=== PATIENT | female | born 1940 | race Caucasian/White ===

== ENCOUNTER 2022-12-22 10:07 | Inpatient (IN) | payer MEDICARE, OTHER ==
[~2022-12-22] VITALS: Ht 152.4 cm; Wt 82.6 kg
[~2022-12-22 10:07] MED LIST: ALBU18HF2 INH; APIX5TAB PO; ASPI-1169 PO; ATOR40TA PO; CARV3.122 PO; CHOL100043 PO; DILT300C52 PO; FERR325T24 PO; FLUO15OI TP; FURO40TA5 PO; GABA-532 PO; MECL-159 PO; OLME1TAB92 PO; OMEP1CAP25 PO; TRAM50TA2 PO
--- NOTE | 2022-12-22 10:54 | NUR ---
AAOx4, came to ER c/o shortness of breath. Afebrile. No s/s or c/o distress. Will continuously monitor the patient. Awaiting md for eval.
[2022-12-22] MEDS ORDERED: FUROSEMIDE 40 MG/4 ML VIAL IV ONE (11:00)
[2022-12-22 11:02] LABS: CALCIUM, SERUM 9.8 mg/dL (8.5-10.1); CARBON DIOXIDE 36 mmol/L (21-32); CHLORIDE 103 mmol/L (98-107); CREATININE 2.9 mg/dL (0.6-1.3); GLUCOSE 110 mg/dL (74-106); POTASSIUM 4.1 mmol/L (3.5-5.1); SODIUM SERUM 146 mmol/L (136-145); UREA NITROGEN, BLOOD 64 mg/dL (7-18)
[2022-12-22] MEDS ORDERED: MELO-107 PO (11:05)
[2022-12-22 11:10] LABS: BASOPHILS % (AUTO) 0.3 % (0.0-2.0); EOSINOPHILS % (AUTO) 7.1 % (0.0-6.0); HEMATOCRIT 23 % (33-45); HEMOGLOBIN 7.4 g/dL (11.5-14.8); LYMPHOCYTES # (AUTO) 1.2 K/uL (0.8-4.8); LYMPHOCYTES % (AUTO) 16.6 % (20.0-44.0); MEAN CORPUSCULAR HGB CONC 33 g/dl (31.0-36.0); MEAN CORPUSCULAR VOLUME 93 fL (82-100); MONOCYTES % (AUTO) 13.3 % (2.0-12.0); NEUTROPHILS # (AUTO) 4.6 K/uL (1.8-8.9); NEUTROPHILS % (AUTO) 62.7 % (43.0-81.0); PLATELET COUNT (AUTO) 197 K/uL (150-450); RED BLOOD CELL COUNT(AUTO) 2.44 MIL/uL (4.0-5.2); WHITE BLOOD COUNT (AUTO) 7.4 K/uL (4.3-11.0)
--- NOTE | 2022-12-22 11:12 | NUR ---
MOVE SHEET SUBMITTED.
[2022-12-22] MEDS ORDERED: FUROSEMIDE 40 MG/4 ML VIAL ONE (11:16)
[2022-12-22] MEDS ORDERED: ACETAMINOPHEN 325 MG TABLET PO PRN (12:30)
[2022-12-22] MEDS ORDERED: ONDANSETRON HCL/PF 4 MG/2 ML VIAL IVP PRN (12:30)
[2022-12-22] MEDS ORDERED: MECLIZINE HCL 25 MG TABLET PO PRN (12:30)
--- NOTE | 2022-12-22 13:27 | NUR ---
BED 322-2. CALL NURSE KAUSHIK FOR REPORT.
[2022-12-22] MEDS ORDERED: ONDANSETRON HCL/PF 4 MG/2 ML VIAL IV STA (13:46)
--- NOTE | 2022-12-22 15:08 | NUR ---
pt left to room 322-1. left er in stable condition.
[2022-12-22 15:30] VITALS: BP 120/70; TEMP 98.2; O2SAT 97
--- NOTE | 2022-12-22 15:30 | NUR ---
ADMISSION NOTES RECEIVED PATIENT VIA GURNEY FROM THE EMERGENCY ROOM. PATIENT IS AWAKE IN BED, A/O X4. NO S/S OF PAIN NOTED AT THIS TIME. ON O2 AT 2LPM VIA NASAL CANNULA, BREATHING EVEN AND UNLABORED, NO DISTRESS OR SOB NOTED. IV ACCESS RAC ML #20G SL, INTACT, PATENT AND FLUSHING WELL. PATIENT ATTACHED TO EXTERNAL OFFICIAL GREETER WITH READING OF SINUS RHYTHM WITH HR OF 66. NO CARDIAC DISTRESS NOTED. VITAL SIGNS TAKEN AND RECORDED. SKIN ASSESSMENT DONE. PHOTOS TAKEN AND ATTACHED TO PATIENT'S CHART. FALL AND SAFETY MEASURES IN PLACE AND MAINTAINED AT ALL TIMES, BED ALARM ON, BED IN LOW AND LOCK POSITION, CALL LIGHT AND TABLE WITHIN EASY REACH, SIDE RAILS UP X2. WILL CONTINUE TO MONITOR THE PATIENT.
[2022-12-22] MEDS ORDERED: FUROSEMIDE 40 MG TABLET PO SCH (17:00)
[2022-12-22] MEDS: TRAMADOL HCL 50 MG TABLET PO SCH ×2 (17:00→17:22)
--- NOTE | 2022-12-22 17:00 | NUR ---
RN NOTE INFORMED DR. IGLESIAS OF PATIENT'S H&H AND WAS ORDERED TO CONTINUE GIVING ELIQUIS. NO SISGNS OF BLEEDING NOTED. CHARGE NURSE MADE AWARE. WILL CONTINUE TO MONITOR THE PATIENT
[2022-12-22] MEDS: CHOLECALCIFEROL (VITAMIN D 3) 400 UNIT TABLET PO SCH (17:21)
[2022-12-22] MEDS: FERROUS SULFATE (325 MG) 325 MG/TAB TABLET PO SCH (17:22)
[2022-12-22] MEDS: GABAPENTIN 100 MG CAPSULE PO SCH (17:22)
--- NOTE | 2022-12-22 17:22 | NUR ---
RN NOTE PATIENT VERBALIZED PAIN IN THE RIGHT THIGH DURING TURNING AND DOING DRESSING. PRN PAIN MEDICATION ADMINISTERED. WILL CONTINUE TO MONITOR THE PATIENT
[2022-12-22] MEDS: DILTIAZEM HCL CD 240 MG PO SCH (17:23)
[2022-12-22] MEDS: APIXABAN 2.5 MG TABLET PO SCH (17:24)
--- NOTE | 2022-12-22 18:39 | NUR ---
CLOSING NOTES PATIENT AWAKE IN BED RESTING. NO S/S OF PAIN NOTED AT THIS TIME. ON O2 AT 2 LPM VIA NASAL CANNULA, BREATHING EVEN AND UNLABORED, NO DISTRESS OR SOB NOTED. IV ACCESS RAC #20G, INTACT, PATENT AND FLUSHING WELL. 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 SKIN CARE IMPLEMENTED. FALL AND SAFETY MEASURES IN PLACE AND MAINTAINED AT ALL TIMES, BED ALARM ON, BED IN LOW AND LOCK POSITION, CALL LIGHT AND TABLE WITHIN EASY REACH, SIDE RAILS UP X2. WILL ENDORSE TO MACHINE STONE POLISHER APPRENTICE NURSE
--- NOTE | 2022-12-22 19:00 | NUR ---
MORTUARY TECHNICIAN OPENING NOTE PT IS SITTING IN HER BED WITH HOB ELEVATED AT 45 DEGREE. SHE IS ON 2LPM OF OXYGEN VIA NC, TOLERATED WELL. NO S/S OF DISTRESS OR SOB. PT IS CZECH SPEAKING, UNDERSTAND SIMPLE JAPANESE. PT IS ALERT AND ORIENTED, AO X 4. PT HAS IV ACCESS AT HER R AC, SL. FLUSHED WELL WITH NS. IV SITE IS PATENT AND INTACT. 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 SAFETY MEASURES ARE IN PLACED: BED IN LOWEST AND LOCKED POSITION; SIDE RAILS UP X 2; BED ALARM IS SET; CALL LIGHT AND TABLE ARE WITHIN REACH. WILL CONTINUE MONITORING THE PT AND PROVIDE THE CARE PT NEEDS.
[2022-12-22 20:00] VITALS: BP_SYST 120; BP_SYST 125; BP_DIAS 54; BP_DIAS 79; TEMP 97.8; O2SAT 100; O2SAT 95
--- NOTE | 2022-12-22 23:29 | NUR ---
RT NOTE PATIENT IS AWAKE ON 3LPM. SPOKE WITH PATIENTS DAUGHTER AND EXPLAINED TO HER BENEFITS OF BIPAP AND HOW HER MOTHER WOULD BENEFIT FROM USING IT. DAUGHTER EXPLAINED THAT THE PATIENT IS OK WITH TRYING TO USE IT BUT WILL NOT WEAR IT IF SHE DOES NOT LIKE IT. ATTEMPTED TO PLACE PATIENT ON BIPAP WITH DIFFERENT SIZE MASKS AND ADJUSTED SETTINGS IN ATTEMPT TO MAKE PATIENT COMFORTABLE. PATIENT DID NOT TOLERATE WEARING BIPAP AND WANTED IT REMOVED. PLACED PATIENT BACK ON 3LPM. SPO2 ON 3L N/C IS 97%. NO SIGNS OF SHORTNESS OF BREATH NOTED. NOTIFIED PRIMARY NURSE ABOUT SITUATION. WILL CONTINUE TO MONITOR PATIENT ON NASAL CANNULA.
[2022-12-23] VITALS (7 sets, daily range): BP systolic 105–134; BP diastolic 43–60; TEMP 97.4–98.5; O2SAT 97–100
[2022-12-23 05:49] LABS: BASOPHILS % (AUTO) 0.5 % (0.0-2.0); EOSINOPHILS % (AUTO) 8.2 % (0.0-6.0); HEMATOCRIT 22 % (33-45); HEMOGLOBIN 7.2 g/dL (11.5-14.8); LYMPHOCYTES # (AUTO) 1.5 K/uL (0.8-4.8); LYMPHOCYTES % (AUTO) 23.8 % (20.0-44.0); MEAN CORPUSCULAR HGB CONC 32 g/dl (31.0-36.0); MEAN CORPUSCULAR VOLUME 94 fL (82-100); MONOCYTES # (AUTO) 0.8 K/uL (0.1-1.30); MONOCYTES % (AUTO) 12.6 % (2.0-12.0); NEUTROPHILS # (AUTO) 3.5 K/uL (1.8-8.9); NEUTROPHILS % (AUTO) 54.9 % (43.0-81.0); PLATELET COUNT (AUTO) 187 K/uL (150-450); RED BLOOD CELL COUNT(AUTO) 2.36 MIL/uL (4.0-5.2); WHITE BLOOD COUNT (AUTO) 6.4 K/uL (4.3-11.0)
[2022-12-23 05:58] LABS: CARBON DIOXIDE 33 mmol/L (21-32); CHLORIDE 102 mmol/L (98-107); GLUCOSE 102 mg/dL (74-106); MAGNESIUM 2.4 mg/dL (1.8-2.4); PHOSPHORUS 4.8 mg/dL (2.5-4.9); POTASSIUM 3.9 mmol/L (3.5-5.1); SODIUM SERUM 144 mmol/L (136-145); UREA NITROGEN, BLOOD 68 mg/dL (7-18)
--- NOTE | 2022-12-23 07:15 | NUR ---
DISHROOM ATTENDANT CLOSING NOTE PT IS SLEEPING IN BED, EASILY BEING AROUSED. SHE IS ON 2LPM OF OXYGEN VIA NC, TOLERATED WELL. NO S/S OF DISTRESS OR SOB. PT IS STATELESS SPEAKING, UNDERSTAND SIMPLE ROMANIAN. PT IS ALERT AND ORIENTED, AO X 4. PT HAS IV ACCESS AT HER R AC, SL. FLUSHED WELL WITH NS. IV SITE IS PATENT AND INTACT. 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 PT REFUSED BIPAP LAST NIGHT. RT CALLED HER FAMILY MEMBER TO EXPLAIN THE SITUATION WITH PT, PT STILL REFUSED. SAFETY MEASURES ARE IN PLACED: BED IN LOWEST AND LOCKED POSITION; SIDE RAILS UP X 2; BED ALARM IS SET; CALL LIGHT AND TABLE ARE WITHIN REACH. WILL ENDORSE NEXT SHIFT NURSE FOR CONTINUING PT CARE.
--- NOTE | 2022-12-23 07:30 | NUR ---
CONTRACT LOADER NOTES PT IN BED, AWAKE, ALERT AND ORIENTED, NO COMPLAINT OF PAIN OR SOB, ON O2 AT 2LPM VIA N/C, WITH O2 SAT OF 97%, SON AT BEDSIDE, PLAN OF CARE DISCUSSED WITH SON, VERBALIZED UNDERSTANDING, KEPT COMFORTABLE IN BED.
[2022-12-23] MEDS: FERROUS SULFATE (325 MG) 325 MG/TAB TABLET PO SCH ×2 (08:48→17:25)
[2022-12-23] MEDS: CHOLECALCIFEROL (VITAMIN D 3) 400 UNIT TABLET PO SCH (08:48)
[2022-12-23] MEDS: GABAPENTIN 100 MG CAPSULE PO SCH (08:49)
[2022-12-23] MEDS: ATORVASTATIN 40 MG TABLET PO SCH (08:49)
[2022-12-23] MEDS: TRAMADOL HCL 50 MG TABLET PO SCH ×3 (08:49→17:25)
[2022-12-23] MEDS: PANTOPRAZOLE 40 MG TABLET.DR PO SCH (08:49)
[2022-12-23] MEDS: DILTIAZEM HCL CD 240 MG PO SCH (08:53)
[2022-12-23] MEDS: APIXABAN 2.5 MG TABLET PO SCH ×2 (09:00→17:00)
[2022-12-23] MEDS ORDERED: LOSARTAN/HCTZ 50-12.5MG/ 1 EA TABLET PO SCH (09:00)
--- NOTE | 2022-12-23 09:00 | NUR ---
FLATBED COMPANY DRIVER NOTES ELIQUIS NOT GIVEN, LOW H/H.
[2022-12-23 09:14] LABS: ABG BASE EXCESS 6.8 mmol/L; ABG OXYGEN SATURATION 97.5 % (92.0-98.5); ABG PCO2 49.2 mmHg (35.0-45.0); ABG PH 7.429 (7.350-7.450); ABG PO2 119.7 mmHg (75.0-100.0); AaDO2 21.9 mmHg; COHb 0.3 % (0.5-1.5); MetHb 0.5 % (0.0-1.5); O2Hb 96.7 % (94.0-97.0); SITE, ABG Left Radial; VENT MODE, BG 2 L O2
--- NOTE | 2022-12-23 11:34 | NUR ---
PATIENT INTIALLY FOUND ON 2 L O2 AWAKE, NON PAKISTANI SPEAKING WITH 100% SAT. DR. ALTAMIRANO SAID TO PLACE PATIENT R/A PER ABG RESULT AND KEEP ABOVE 90% ON R/A.. PATIENT REMAIN STABLE. Addendum: 12/23/22 at 1136 by MARIA ELENA MONK RT Amended: Links added.
--- NOTE | 2022-12-23 18:44 | NUR ---
TYPISTS SUPERVISOR NOTES PT IN BED, AWAKE, ALERT AND ORIENTED, NO SHORTNESS OF BREATH, NO COMPLAINT OF PAIN, BACK ON O2 AT 2LPM VIA N/C, O2 SAT OF 97%, KEPT HOB ELEVATED, WITH GOOD APPETITE, PM CARE PROVIDED, PLAN OF CARE DISCUSSED WITH SON, VERBALIZED UNDERSTANDING, SEEN BY DR. IGLESIAS TODAY, ALL NEEDS ATTENDED.
--- NOTE | 2022-12-23 19:30 | NUR ---
FINE PATCHER OPENING NOTES: PATIENT AWAKE ON BED, A/O X4. NO COMPLAINTS OF PAIN OR DISCOMFORT NOTED AT THIS TIME. ON 02 AT 2LPM VIA NC, BREATHING EVEN AND UNLABORED, NO OR SOB NOTED. WITH IV ACCESS AT RAC #20G-SL, INTACT AND PATENT. FALL AND SAFETY PRECAUTIONS IN PLACE. BED IN LOW AND LOCKED POSITION, SIDE RAILS UP X2. CALL LIGHT AND TABLE WITHIN EASY REACH.
--- NOTE | 2022-12-23 19:57 | NUR ---
RCVD PT AT 2L NC AND ATTEMPTED TO PLACE NOC BIPAP, PT REFUSED. SPO2 98% , TITRATE O2 TO 1L. NO RESPIRATORY DISTRESS OR SOB AT THIS TIME. WILL CONTINUE TO MONITOR T/O SHIFT.
--- NOTE | 2022-12-23 19:58 | NUR ---
TRIP FOLLOWER NOTES: SPOKE WITH THE PATIENT TOGETHER WITH RT ON DUTY NORMA, TO CONVINCE BIPAP PLACEMENT. PATIENT STILL REFUSED BIPAP DESPITE EXPLAINING RISKS AND CONSEQUENCES. PATIENT INITIALLY WAS ON 2LPM AND WAS TAPERED DOWN TO 1LPM, SATURATING AT 98%, TOLERATING WELL, NOT IN ANY RESPIRATORY DISTRESS.
[2022-12-24] VITALS (8 sets, daily range): BP systolic 108–129; BP diastolic 43–54; TEMP 97.4–98.4; O2SAT 96–100
[2022-12-24 05:57] LABS: BASOPHILS % (AUTO) 0.3 % (0.0-2.0); EOSINOPHILS % (AUTO) 7.5 % (0.0-6.0); HEMATOCRIT 22 % (33-45); LYMPHOCYTES # (AUTO) 1.8 K/uL (0.8-4.8); LYMPHOCYTES % (AUTO) 21.9 % (20.0-44.0); MEAN CORPUSCULAR HGB CONC 32 g/dl (31.0-36.0); MEAN CORPUSCULAR VOLUME 94 fL (82-100); MONOCYTES # (AUTO) 1.1 K/uL (0.1-1.30); NEUTROPHILS # (AUTO) 4.6 K/uL (1.8-8.9); NEUTROPHILS % (AUTO) 56.3 % (43.0-81.0); PLATELET COUNT (AUTO) 182 K/uL (150-450); RED BLOOD CELL COUNT(AUTO) 2.28 MIL/uL (4.0-5.2); WHITE BLOOD COUNT (AUTO) 8.1 K/uL (4.3-11.0)
--- NOTE | 2022-12-24 06:12 | NUR ---
REAL ESTATE APPRAISER SUPERVISOR NOTE RECEIVED A CALL FROM LAB ABOUT LATEST CBC RESULT OF PATIENT. RBC WENT DOWN TO 2.28, HGB-7, HCT-22. NOTIFIED HOSPITALIST CLINICAL BUSINESS MANAGER DR. SCHULER AND AWAITING FOR ADVISE. NO S/SX. OF BLEEDING OF THIS TIME.
[2022-12-24 06:16] LABS: CALCIUM, SERUM 9.1 mg/dL (8.5-10.1); CARBON DIOXIDE 32 mmol/L (21-32); CHLORIDE 104 mmol/L (98-107); GLUCOSE 92 mg/dL (74-106); MAGNESIUM 2.5 mg/dL (1.8-2.4); PHOSPHORUS 4.6 mg/dL (2.5-4.9); POTASSIUM 4.3 mmol/L (3.5-5.1); SODIUM SERUM 142 mmol/L (136-145); UREA NITROGEN, BLOOD 68 mg/dL (7-18)
[2022-12-24 06:27] LABS: CREATININE, URINE 114.9 MG/DL (30.0-125.0)
--- NOTE | 2022-12-24 06:30 | NUR ---
FRONT DESK LEAD CLOSING NOTES: PATIENT AWAKE ON BED, A/O X4. NO COMPLAINTS OF PAIN OR DISCOMFORT NOTED AT THIS TIME. ON 02 AT 1LPM VIA NC, BREATHING EVEN AND UNLABORED. PATIENT STILL REFUSED BIPAP DESPITE EXPLAINING RISKS AND CONSEQUENCES. SATURATING AT 96%, TOLERATING WELL, NOT IN ANY RESPIRATORY DISTRESS. WITH IV ACCESS AT RAC #20G-SL, INTACT AND PATENT. ON TELE MONITORING WITH CURRENT READING OF SR 80. FALL AND SAFETY PRECAUTIONS IN PLACE. BED IN LOW AND LOCKED POSITION, SIDE RAILS UP X2. CALL LIGHT AND TABLE WITHIN EASY REACH. ALL NEEDS ATTENDED. ENDORSED TO AM NURSE FOR JON.
[2022-12-24 06:40] LABS: BILIRUBIN,URINE NEGATIVE (NEGATIVE); COLOR,URINE YELLOW (YELLOW); LEUKOCYTE ESTERASE ,URINE 2+ (NEGATIVE); NITRITE, URINE NEGATIVE (NEGATIVE); PROTEIN,URINE NEGATIVE (NEGATIVE); UGLUCOSE NEGATIVE (NEGATIVE); UROBILINOGEN,URINE 0.2 EU/dL (0.2)
[2022-12-24 06:57] LABS: BACTERIA,URINE Few /HPF (None Seen); EOSINOPHIL,URINE None Seen; RBC,URINE 0-2 /HPF (0-2); SQUAMOUS EPITHELIAL CELL,UR Rare /HPF (None Seen)
--- NOTE | 2022-12-24 06:59 | NUR ---
FACILITIES DIRECTOR NOTE RELAYED LATEST LAB RESULT WITH NO NEW ORDER MADE.
--- NOTE | 2022-12-24 08:06 | NUR ---
QA AUTOMATION ENGINEER OPENING NOTE RECEIVED PT RESTFUL IN BED,A&O x2,SATURATING WELL ON 02 1L/M VIA NC ,BREATHING IS EVEN AND UNLABORED,APPEARS TO BE COMFORTABLE,NO S/S OF DISCOMFORT NOTED.HAS A TELE WITH A READING OF SR 80.HAS A PUREWICK INTACT AND DRAINING WELL.HAS AN IV ACCESS RAC #20G .ON SKIN ASSESSMENT ,HAS A SKIN TEAR R GROIN,REDNESS AND SCAR AT BUTTOCKS SAFETY MEASURES IN PLACE ,BED IN A LOW POSITION &LOCKED,BED RAILS UP x3.CALL PLATT AND TABLE WITHIN REACH CONTINUES WITH THE CURRENT PLAN OF CARE,HOURLY ROUNDING/PRN
[2022-12-24 08:24] LABS: IRON, SERUM 51 ug/dl (50-175); TOTAL IRON BINDING CAPACITY 280 ug/dl (250-450)
[2022-12-24 08:35] LABS: FERRITIN 451 ng/mL (8-388)
[2022-12-24] MEDS: PANTOPRAZOLE 40 MG TABLET.DR PO SCH (08:38)
[2022-12-24] MEDS: ATORVASTATIN 40 MG TABLET PO SCH (08:38)
[2022-12-24] MEDS: FERROUS SULFATE (325 MG) 325 MG/TAB TABLET PO SCH ×2 (08:38→16:56)
[2022-12-24] MEDS: TRAMADOL HCL 50 MG TABLET PO SCH ×3 (08:40→16:56)
[2022-12-24] MEDS: CHOLECALCIFEROL (VITAMIN D 3) 400 UNIT TABLET PO SCH (08:40)
[2022-12-24] MEDS: GABAPENTIN 100 MG CAPSULE PO SCH (08:41)
[2022-12-24] MEDS: DILTIAZEM HCL CD 240 MG PO SCH ×2 (08:42→08:52)
[2022-12-24] MEDS: APIXABAN 2.5 MG TABLET PO SCH ×2 (08:46→16:56)
[2022-12-24] MEDS ORDERED: LACTULOSE 10 G/15 ML UDC (PYXIS) PO ONE (11:00)
[2022-12-24] MEDS: SORBITOL SOLUTION 70% 30 ML SOLUTION PO SCH (11:51)
--- NOTE | 2022-12-24 19:23 | NUR ---
BONDED STRAND OPERATOR CLOSING NOTE PT RESTFUL IN BED,A&O x2,SATURATING WELL ON 02 1L/M VIA NC ,BREATHING IS EVEN AND UNLABORED,APPEARS TO BE COMFORTABLE,NO S/S OF DISCOMFORT NOTED.HAS A TELE WITH A READING OF SR 80.HAS A PUREWICK INTACT AND DRAINING WELL.TRASH TRUCK DRIVER REPORTED TO ME OF PT'S 1 BM IN THE AFTERNOON.HAS AN IV ACCESS RAC #20G .WOUND CONSULT REVIEWED THE PATIENT ON THE SKIN TEAR R GROIN,REDNESS AND SCAR AT BUTTOCKS AND SAID "ITS NOT BAD,NO CHANGES MADE"!PAIN WELL CONTROLLED THROUGH OUT SHIFT WITH TRAMADOL AROUND THE CLOCK SAFETY MEASURES IN PLACE ,BED IN A LOW POSITION &LOCKED,BED RAILS UP x3.CALL PLATT AND TABLE WITHIN REACH!WILL ENDORSE TO THE CLOTH EXAMINER NURSE
--- NOTE | 2022-12-24 19:30 | NUR ---
PEOPLESOFT PROGRAMMER OPENING NOTE PATIENT IN BED, AWAKE, ALERT AND ORIENTED X4, WITH HOB ELEVATED. AFEBRILE AND NOT IN ANY FORM OF ACUTE DISTRESS. ON O2 INHALATION VIA NASAL CANNULA AT 2LPM. ON TELE MONITORING WITH CURRENT READING SR. WITH IV ACCESS ON RAC 20G-SL. SAFETY MEASURES IN PLACE. KEPT BED IN LOCKED AND IN LOW POSITION. SIDE RAILS UP X2. ADVISED TO USE THE CALL LIGHT WHEN IN NEED OF ASSISTANCE.
--- NOTE | 2022-12-24 20:30 | NUR ---
PT REFUSED NOC BIPAP, SPO2 96% @ 2L NC. NO RESPIRATORY DISTRESS NOTED AT THIS TIME. WILL CONTINUE TO MONITOR T/O SHIFT.
[2022-12-25 04:22] VITALS: BP 142/52; TEMP 98.3; O2SAT 100
[2022-12-25 05:45] LABS: BASOPHILS % (AUTO) 0.4 % (0.0-2.0); EOSINOPHILS % (AUTO) 6.6 % (0.0-6.0); HEMATOCRIT 25 % (33-45); HEMOGLOBIN 7.7 g/dL (11.5-14.8); LYMPHOCYTES # (AUTO) 1.9 K/uL (0.8-4.8); MEAN CORPUSCULAR HGB CONC 32 g/dl (31.0-36.0); MEAN CORPUSCULAR VOLUME 96 fL (82-100); MONOCYTES % (AUTO) 12.5 % (2.0-12.0); NEUTROPHILS # (AUTO) 4.7 K/uL (1.8-8.9); NEUTROPHILS % (AUTO) 57.5 % (43.0-81.0); PLATELET COUNT (AUTO) 195 K/uL (150-450); RED BLOOD CELL COUNT(AUTO) 2.54 MIL/uL (4.0-5.2); WHITE BLOOD COUNT (AUTO) 8.1 K/uL (4.3-11.0)
[2022-12-25 05:59] LABS: CALCIUM, SERUM 9.4 mg/dL (8.5-10.1); CARBON DIOXIDE 31 mmol/L (21-32); CHLORIDE 103 mmol/L (98-107); CREATININE 2.5 mg/dL (0.6-1.3); GLUCOSE 92 mg/dL (74-106); MAGNESIUM 2.6 mg/dL (1.8-2.4); PHOSPHORUS 4.7 mg/dL (2.5-4.9); POTASSIUM 4.3 mmol/L (3.5-5.1); SODIUM SERUM 141 mmol/L (136-145); UREA NITROGEN, BLOOD 59 mg/dL (7-18)
--- NOTE | 2022-12-25 06:30 | NUR ---
HOUSETRAILER SERVICER CLOSING NOTE PATIENT IN BED, WITH HOB ELEVATED, ASLEEP BUT EASY TO AROUSE AND RESPONSIVE. AFEBRILE AND NOT IN ANY FORM OF ACUTE DISTRESS. ON O2 INHALATION VIA NASAL CANNULA AT 2LPM. STILL REFUSING BIPAP AT NIGHT, MD AWARE, NO SOB/WHEEZING NOTED. ON TELE MONITORING WITH CURRENT READING SR 74. WITH IV ACCESS ON RAC 20G-SL. ENCOURAGED TO TURN AND REPOSITION EVERY 2 HOURS AND TOLERATED TO PROMOTE PROPER CIRCULATION AND COMFORT. SAFETY MEASURES IN PLACE. KEPT BED IN LOCKED AND IN LOW POSITION. SIDE RAILS UP X2. ADVISED TO USE THE CALL LIGHT WHEN IN NEED OF ASSISTANCE. ALL NURSING NEEDS ATTENDED. ENDORSED TO INCOMING SHIFT FOR CONTINUITY OF CARE.
[2022-12-25 07:00] VITALS: BP 122/67; TEMP 98.4; O2SAT 99
--- NOTE | 2022-12-25 07:31 | NUR ---
COSMETIC DENTIST OPENING NOTE RECEIVED PATIENT IN BED, AWAKE, A/O X4. ABLE TO MAKE NEEDS KNOWN. ON OXYGEN AT 2LPM VIA NASAL CANNULA, BREATHING EVENLY AND UNLABORED, WITH NO SOB AND S/S OF DISTRESS NOTED. WITH HOB. 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 WITH IV ACCESS ON RIGHT AC #20G SL, INTACT AND PATENT, FLUSHING WELL. NO COMPLAIN OF PAIN OR DISCOMFORT AT THIS TIME. SAFETY MEASURES IN PLACE: BED IN LOWEST LOCKED POSITION, SIDE RAILS UP X2, CALL LIGHT WITHIN REACH. WILL CONTINUE TO MONITOR ACCORDINGLY.
[2022-12-25 08:00] VITALS: O2SAT 100
[2022-12-25] MEDS: GABAPENTIN 100 MG CAPSULE PO SCH (08:19)
[2022-12-25] MEDS: FERROUS SULFATE (325 MG) 325 MG/TAB TABLET PO SCH ×2 (08:19→17:09)
[2022-12-25] MEDS: SORBITOL SOLUTION 70% 30 ML SOLUTION PO SCH (08:19)
[2022-12-25] MEDS: CHOLECALCIFEROL (VITAMIN D 3) 400 UNIT TABLET PO SCH (08:20)
[2022-12-25] MEDS: PANTOPRAZOLE 40 MG TABLET.DR PO SCH (08:20)
[2022-12-25] MEDS: TRAMADOL HCL 50 MG TABLET PO SCH ×3 (08:20→17:10)
[2022-12-25] MEDS: ATORVASTATIN 40 MG TABLET PO SCH (08:20)
[2022-12-25 08:21] VITALS: BP 122/67
[2022-12-25] MEDS: DILTIAZEM HCL CD 240 MG PO SCH (08:21)
[2022-12-25] MEDS: APIXABAN 2.5 MG TABLET PO SCH ×2 (08:30→17:09)
--- NOTE | 2022-12-25 19:18 | NUR ---
TRAINING PROJECT MANAGER NOTE RECEIVED ORDER FOR DISCHARGE. PT A/O X4, ABLE TO MAKE NEEDS KNOWN. ON OXYGEN AT 2LPM VIA NASAL CANNULA, BREATHING EVENLY AND UNLABORED. NO SOB OR DISTRESS NOTED. DISCHARGE INSTRUCTIONS GIVEN, PT VERBALIZED UNDERSTANDING. ALL BELONGINGS ACCOUY NTED FOR, BELONGING SHEET SIGNED. PT DENIES ANY PAIN OR DISCOMFORT AT THIS TIME. IV ACCESS REMOVED, CATHETER TIP INTACT. PRESSURE DRESSING APPLIED. EXIT CARE FOLDER GIVEN TO PT. PATIENT LEFT IN STABLE CONDITION WITH DAUGHTER VIA PRIVATE CAR.
== END 2022-12-25 18:15 | disposition home health service (06) | DRG 280 ==
LOC: ER 10:15 → TELE 13:40
PROVIDERS: ADMIT Nurse Practitioner Acute Care; ATTEND Nurse Practitioner Acute Care
DX: I13.0 Hypertensive heart and chronic kidney disease with heart failure and stage 1 through stage 4 chronic kidney disease, or unspecified chronic kidney disease (principal); I50.31 Acute diastolic (congestive) heart failure; I21.A1 Myocardial infarction type 2; N17.0 Acute kidney failure with tubular necrosis; D68.69 Other thrombophilia; E66.2 Morbid (severe) obesity with alveolar hypoventilation; N17.9 Acute kidney failure, unspecified; E87.1 Hypo-osmolality and hyponatremia; N39.0 Urinary tract infection, site not specified; N18.9 Chronic kidney disease, unspecified; D63.1 Anemia in chronic kidney disease; E78.5 Hyperlipidemia, unspecified; I48.0 Paroxysmal atrial fibrillation; N28.1 Cyst of kidney, acquired; Z79.01 Long term (current) use of anticoagulants; Z68.35 Body mass index [BMI] 35.0-35.9, adult; J98.4 Other disorders of lung; B96.20 Unspecified Escherichia coli [E. coli] as the cause of diseases classified elsewhere
CPT/HCPCS: 36415; 36600; 71045-TC; 80048-TC; 81001; 82533; 82570-TC; 82728-TC; 82803-TC; 83540-TC; 83735-TC; 83880; 84100-TC; 84300-TC; 84443-TC; 84484-TC; 85025-TC; 87081-TC; 87086-TC; 94799-TC; A6403; G0378; J1940; J2405

== ENCOUNTER 2023-01-16 23:39 | Inpatient (IN) | payer MEDICARE, OTHER ==
[~2023-01-16] VITALS: Ht 152.4 cm; Wt 114.3 kg
[~2023-01-16 23:39] MED LIST changes: -ALBU18HF2 INH; -APIX5TAB PO; -ASPI-1169 PO; -CARV3.122 PO; -FLUO15OI TP
[2023-01-17] VITALS (10 sets, daily range): BP systolic 106–126; BP diastolic 50–60; TEMP 97.3–98.1; O2SAT 97–99
[2023-01-17 00:11] LABS: BASOPHILS % (AUTO) 0.2 % (0.0-2.0); EOSINOPHILS # (AUTO) 0.8 K/uL (0.0-0.7); EOSINOPHILS % (AUTO) 10.9 % (0.0-6.0); HEMATOCRIT 21 % (33-45); LYMPHOCYTES # (AUTO) 1.5 K/uL (0.8-4.8); LYMPHOCYTES % (AUTO) 19.8 % (20.0-44.0); MEAN CORPUSCULAR HEMOGLOBIN 30 PG (26.0-33.0); MEAN CORPUSCULAR HGB CONC 32 g/dl (31.0-36.0); MEAN CORPUSCULAR VOLUME 93 fL (82-100); MONOCYTES # (AUTO) 0.9 K/uL (0.1-1.30); MONOCYTES % (AUTO) 11.1 % (2.0-12.0); NEUTROPHILS # (AUTO) 4.4 K/uL (1.8-8.9); PLATELET COUNT (AUTO) 268 K/uL (150-450); RED BLOOD CELL COUNT(AUTO) 2.23 MIL/uL (4.0-5.2); RED CELL DISTRIBUTION WIDTH 14.6 % (11.5-15.0); WHITE BLOOD COUNT (AUTO) 7.7 K/uL (4.3-11.0)
[2023-01-17 00:12] LABS: HEMOGLOBIN 6.7 g/dL (11.5-14.8)
[2023-01-17 00:35] LABS: CALCIUM, SERUM 9.1 mg/dL (8.5-10.1); CARBON DIOXIDE 35 mmol/L (21-32); CHLORIDE 99 mmol/L (98-107); CREATININE 4.6 mg/dL (0.6-1.3); GLUCOSE 116 mg/dL (74-106); POTASSIUM 5.1 mmol/L (3.5-5.1); SODIUM SERUM 140 mmol/L (136-145)
[2023-01-17 00:40] LABS: UREA NITROGEN, BLOOD 96 mg/dL (7-18)
[2023-01-17 00:49] LABS: NT-PRO BNP 741 pg/mL (0-125)
[2023-01-17 00:58] LABS: ALBUMIN 2.9 g/dL (3.4-5.0); BILIRUBIN,DIRECT 0.1 mg/dL (0.0-0.2); BILIRUBIN,TOTAL 0.3 mg/dL (0.2-1.0); TOTAL PROTEIN, SERUM 7.4 g/dL (6.4-8.2)
[2023-01-17 01:20] LABS: INR 1.31 (0.91-1.10); PARTIAL THROMBOPLASTIN TIME 29.3 SEC (24.3-34.3); PROTHROMBIN TIME 13.5 SECS (9.2-11.1)
[2023-01-17] MEDS ORDERED: FUROSEMIDE 40 MG/4 ML VIAL ONE (01:51)
[2023-01-17] MEDS ORDERED: ASPIRIN 81 MG TAB.CHEW ONE (01:52)
[2023-01-17] MEDS ORDERED: ASPIRIN 81 MG TAB.CHEW PO ONE (02:00)
[2023-01-17] MEDS ORDERED: FUROSEMIDE 40 MG/4 ML VIAL IV ONE (02:00)
[2023-01-17 05:24] LABS: ANISOCYTOSIS 1+; BASOPHILS % (MANUAL) 0 % (0.0-2.0); EOSINOPHILS % (MANUAL) 6 % (0-4); LYMPHOCYTES % (MANUAL) 23 % (16-48); MONOCYTES % (MANUAL) 10 % (0-11.0); NEUTROPHILS % (MANUAL) 61 (42-76); PLATELET ESTIMATE ADEQUATE
[2023-01-17] MEDS ORDERED: ACETAMINOPHEN 325 MG TABLET PO PRN (07:00)
[2023-01-17] MEDS ORDERED: ONDANSETRON HCL/PF 4 MG/2 ML VIAL IVP PRN (07:00)
[2023-01-17] MEDS ORDERED: MAG HYDROX/AL HYDROX/SIMETH 30 ML UDC PO PRN (07:00)
[2023-01-17] MEDS ORDERED: MAGNESIUM HYDROXIDE 30 ML UDC PO PRN (07:00)
[2023-01-17] MEDS ORDERED: Z GUARD REMEDY 4 OZ OINT TP PRN (07:00)
[2023-01-17] MEDS ORDERED: ZOLPIDEM TARTRATE 5 MG TABLET PO PRN (07:00)
[2023-01-17] MEDS ORDERED: FUROSEMIDE 40 MG/4 ML VIAL IV SCH (09:00)
[2023-01-17] MEDS: PANTOPRAZOLE 40 MG VIAL IV SCH (09:24)
[2023-01-17] MEDS ORDERED: MECLIZINE HCL 25 MG TABLET PO PRN (13:30)
[2023-01-17 14:13] LABS: HEMOGLOBIN 7.5 g/dL (11.5-14.8)
[2023-01-17] MEDS ORDERED: NEPRO VAN 237 ML CAN PO PRN (14:30)
[2023-01-17] MEDS: FERROUS SULFATE (325 MG) 325 MG/TAB TABLET PO SCH (16:08)
[2023-01-17] MEDS: TRAMADOL HCL 50 MG TABLET PO SCH (16:09)
[2023-01-17] MEDS ORDERED: APIX5TAB PO (17:45)
[2023-01-18] VITALS: BP 139/76; TEMP 97.2; O2SAT 98
[2023-01-18 07:00] VITALS: BP 142/65; TEMP 97.7; O2SAT 96
[2023-01-18 07:04] LABS: BASOPHILS % (AUTO) 0.3 % (0.0-2.0); EOSINOPHILS # (AUTO) 0.9 K/uL (0.0-0.7); EOSINOPHILS % (AUTO) 11.6 % (0.0-6.0); HEMATOCRIT 25 % (33-45); HEMOGLOBIN 8.2 g/dL (11.5-14.8); LYMPHOCYTES # (AUTO) 1.4 K/uL (0.8-4.8); LYMPHOCYTES % (AUTO) 18.3 % (20.0-44.0); MEAN CORPUSCULAR HEMOGLOBIN 30 PG (26.0-33.0); MEAN CORPUSCULAR HGB CONC 33 g/dl (31.0-36.0); MEAN CORPUSCULAR VOLUME 92 fL (82-100); MONOCYTES # (AUTO) 0.8 K/uL (0.1-1.30); MONOCYTES % (AUTO) 11.1 % (2.0-12.0); NEUTROPHILS # (AUTO) 4.4 K/uL (1.8-8.9); NEUTROPHILS % (AUTO) 58.7 % (43.0-81.0); PLATELET COUNT (AUTO) 232 K/uL (150-450); RED BLOOD CELL COUNT(AUTO) 2.71 MIL/uL (4.0-5.2); WHITE BLOOD COUNT (AUTO) 7.5 K/uL (4.3-11.0)
[2023-01-18 07:22] LABS: ALANINE AMINOTRANSFERASE 35 U/L (12-78); ALBUMIN 2.8 g/dL (3.4-5.0); ALKALINE PHOSPHATASE 67 U/L (46-116); ASPARTATE AMINOTRANSFERASE 19 U/L (15-37); BILIRUBIN,DIRECT 0.1 mg/dL (0.0-0.2); BILIRUBIN,TOTAL 0.4 mg/dL (0.2-1.0); CALCIUM, SERUM 9.9 mg/dL (8.5-10.1); CARBON DIOXIDE 32 mmol/L (21-32); CHLORIDE 102 mmol/L (98-107); CREATININE 3.7 mg/dL (0.6-1.3); GLUCOSE 100 mg/dL (74-106); MAGNESIUM 2.8 mg/dL (1.8-2.4); PHOSPHORUS 5.4 mg/dL (2.5-4.9); POTASSIUM 4.3 mmol/L (3.5-5.1); SODIUM SERUM 145 mmol/L (136-145); TOTAL PROTEIN, SERUM 7.2 g/dL (6.4-8.2)
[2023-01-18 07:28] LABS: CHOLESTEROL 185 mg/dL (<200); HDL CHOLESTEROL 45 mg/dL (40-60); LDL 108 mg/dL (0-99); TRIGLYCERIDES 101 mg/dL (30-150)
[2023-01-18 07:39] LABS: UREA NITROGEN, BLOOD 91 mg/dL (7-18)
[2023-01-18 08:18] LABS: EOSINOPHILS % (MANUAL) 16 % (0-4); LYMPHOCYTES % (MANUAL) 24 % (16-48); MONOCYTES % (MANUAL) 5 % (0-11.0); NEUTROPHILS % (MANUAL) 55 (42-76); PLATELET ESTIMATE ADEQUATE
[2023-01-18] MEDS ORDERED: LOSARTAN POTASSIUM 50 MG TABLET PO SCH (09:00)
[2023-01-18] MEDS ORDERED: Medication Not On Formulary EA (Omeprazole/Sodium Bicarbonate (Omeprazole-Bicarb 40-1,10 PO SCH (09:00)
[2023-01-18] MEDS ORDERED: HYDROCHLOROTHIAZIDE 25 MG TABLET PO SCH (09:00)
[2023-01-18] MEDS: PANTOPRAZOLE 40 MG VIAL IV SCH (09:37)
[2023-01-18] MEDS: CHOLECALCIFEROL 1,000 UNIT TABLET (VIT D3) PO SCH (09:38)
[2023-01-18] MEDS: FERROUS SULFATE (325 MG) 325 MG/TAB TABLET PO SCH ×2 (09:38→16:57)
[2023-01-18] MEDS: ATORVASTATIN 40 MG TABLET PO SCH (09:38)
[2023-01-18] MEDS: TRAMADOL HCL 50 MG TABLET PO SCH ×3 (09:39→16:57)
[2023-01-18] MEDS: GABAPENTIN 100 MG CAPSULE PO SCH (09:40)
[2023-01-18] MEDS: DILTIAZEM HCL CD 300 MG PO SCH (09:45)
[2023-01-18 13:00] VITALS: BP 127/56; TEMP 97.6; O2SAT 97
[2023-01-18 16:10] VITALS: BP 129/55; TEMP 97.7; O2SAT 96
[2023-01-18 20:00] VITALS: BP 121/53; TEMP 97.2; O2SAT 96
[2023-01-19] VITALS (7 sets, daily range): BP systolic 115–142; BP diastolic 47–65; TEMP 97.7–98.4; O2SAT 96–99
[2023-01-19 06:49] LABS: BASOPHILS % (AUTO) 0.3 % (0.0-2.0); EOSINOPHILS # (AUTO) 0.8 K/uL (0.0-0.7); EOSINOPHILS % (AUTO) 10.6 % (0.0-6.0); HEMATOCRIT 26 % (33-45); LYMPHOCYTES # (AUTO) 0.8 K/uL (0.8-4.8); LYMPHOCYTES % (AUTO) 11.5 % (20.0-44.0); MEAN CORPUSCULAR HEMOGLOBIN 30 PG (26.0-33.0); MEAN CORPUSCULAR HGB CONC 32 g/dl (31.0-36.0); MEAN CORPUSCULAR VOLUME 96 fL (82-100); MONOCYTES # (AUTO) 0.8 K/uL (0.1-1.30); MONOCYTES % (AUTO) 11.4 % (2.0-12.0); NEUTROPHILS # (AUTO) 4.8 K/uL (1.8-8.9); NEUTROPHILS % (AUTO) 66.2 % (43.0-81.0); PLATELET COUNT (AUTO) 213 K/uL (150-450); RED BLOOD CELL COUNT(AUTO) 2.67 MIL/uL (4.0-5.2); RED CELL DISTRIBUTION WIDTH 15.1 % (11.5-15.0); WHITE BLOOD COUNT (AUTO) 7.3 K/uL (4.3-11.0)
[2023-01-19 07:15] LABS: CALCIUM, SERUM 9.5 mg/dL (8.5-10.1); CARBON DIOXIDE 29 mmol/L (21-32); CHLORIDE 104 mmol/L (98-107); CREATININE 3.2 mg/dL (0.6-1.3); GLUCOSE 106 mg/dL (74-106); POTASSIUM 4.2 mmol/L (3.5-5.1); SODIUM SERUM 143 mmol/L (136-145)
[2023-01-19 07:22] LABS: UREA NITROGEN, BLOOD 81 mg/dL (7-18)
[2023-01-19 07:41] LABS: EOSINOPHILS % (MANUAL) 4 % (0-4); LYMPHOCYTES % (MANUAL) 13 % (16-48); MONOCYTES % (MANUAL) 10 % (0-11.0); NEUTROPHILS % (MANUAL) 73 (42-76); PLATELET ESTIMATE ADEQUATE
[2023-01-19] MEDS: GABAPENTIN 100 MG CAPSULE PO SCH (08:38)
[2023-01-19] MEDS: CHOLECALCIFEROL 1,000 UNIT TABLET (VIT D3) PO SCH (08:38)
[2023-01-19] MEDS: FERROUS SULFATE (325 MG) 325 MG/TAB TABLET PO SCH ×2 (08:39→17:18)
[2023-01-19] MEDS: ATORVASTATIN 40 MG TABLET PO SCH (08:39)
[2023-01-19] MEDS: TRAMADOL HCL 50 MG TABLET PO SCH ×3 (08:39→17:18)
[2023-01-19] MEDS: PANTOPRAZOLE 40 MG TABLET.DR PO SCH (08:39)
[2023-01-19] MEDS: DILTIAZEM HCL CD 300 MG PO SCH (08:46)
[2023-01-19] MEDS: CLOTRIMAZOLE 1% 15 GM TUBE TP SCH ×2 (11:17→17:20)
[2023-01-19] MEDS: ALBUTEROL HALF STRENGTH 1.25 MG/3 ML VIAL.NEB NEB SCH ×2 (16:00→19:59)
[2023-01-19] MEDS: IPRATROPIUM NEB FS 0.5 MG/2.5 ML AMPUL.NEB NEB SCH ×2 (16:00→19:59)
[2023-01-20] VITALS (13 sets, daily range): BP systolic 100–142; BP diastolic 42–58; TEMP 97.5–98.4; O2SAT 95–99
[2023-01-20] MEDS: ALBUTEROL HALF STRENGTH 1.25 MG/3 ML VIAL.NEB NEB SCH ×4 (01:30→19:56)
[2023-01-20] MEDS: IPRATROPIUM NEB FS 0.5 MG/2.5 ML AMPUL.NEB NEB SCH ×4 (01:30→19:56)
[2023-01-20 06:26] LABS: BASOPHILS % (AUTO) 0.2 % (0.0-2.0); EOSINOPHILS # (AUTO) 0.6 K/uL (0.0-0.7); EOSINOPHILS % (AUTO) 10.6 % (0.0-6.0); HEMATOCRIT 23 % (33-45); HEMOGLOBIN 7.7 g/dL (11.5-14.8); LYMPHOCYTES % (AUTO) 17.5 % (20.0-44.0); MEAN CORPUSCULAR HEMOGLOBIN 30 PG (26.0-33.0); MEAN CORPUSCULAR HGB CONC 33 g/dl (31.0-36.0); MEAN CORPUSCULAR VOLUME 92 fL (82-100); MONOCYTES # (AUTO) 0.9 K/uL (0.1-1.30); MONOCYTES % (AUTO) 15.2 % (2.0-12.0); NEUTROPHILS # (AUTO) 3.2 K/uL (1.8-8.9); NEUTROPHILS % (AUTO) 56.5 % (43.0-81.0); PLATELET COUNT (AUTO) 201 K/uL (150-450); RED BLOOD CELL COUNT(AUTO) 2.55 MIL/uL (4.0-5.2); RED CELL DISTRIBUTION WIDTH 14.1 % (11.5-15.0); WHITE BLOOD COUNT (AUTO) 5.7 K/uL (4.3-11.0)
[2023-01-20 06:36] LABS: CALCIUM, SERUM 9.5 mg/dL (8.5-10.1); CARBON DIOXIDE 32 mmol/L (21-32); CHLORIDE 103 mmol/L (98-107); CREATININE 2.8 mg/dL (0.6-1.3); GLUCOSE 111 mg/dL (74-106); POTASSIUM 4.3 mmol/L (3.5-5.1); SODIUM SERUM 141 mmol/L (136-145); UREA NITROGEN, BLOOD 66 mg/dL (7-18)
[2023-01-20] MEDS: GABAPENTIN 100 MG CAPSULE PO SCH (08:56)
[2023-01-20] MEDS: ATORVASTATIN 40 MG TABLET PO SCH (08:57)
[2023-01-20] MEDS: CHOLECALCIFEROL 1,000 UNIT TABLET (VIT D3) PO SCH (08:57)
[2023-01-20] MEDS: FERROUS SULFATE (325 MG) 325 MG/TAB TABLET PO SCH ×2 (08:58→16:07)
[2023-01-20] MEDS: PANTOPRAZOLE 40 MG TABLET.DR PO SCH (08:58)
[2023-01-20] MEDS: DILTIAZEM HCL CD 300 MG PO SCH (08:58)
[2023-01-20] MEDS: TRAMADOL HCL 50 MG TABLET PO SCH ×3 (08:58→16:08)
[2023-01-20] MEDS: CLOTRIMAZOLE 1% 15 GM TUBE TP SCH ×2 (09:00→16:09)
[2023-01-20] MEDS ORDERED: LIDOCAINE HCL/MPF 1% 30 ML VIAL IJ ONE (10:24)
[2023-01-20] MEDS ORDERED: CELLULOSE,OXIDIZED 1 EACH EACH MC ONE (10:24)
[2023-01-20 11:07] LABS: HEPATITIS B CORE AB, IgM Negative (Negative); HEPATITIS B CORE AB, TOTAL Negative (Negative); HEPATITIS Be AG Negative (Negative)
[2023-01-20] MEDS ORDERED: FENTANYL PF 100MCG/2ML AMPUL ONE (11:37)
[2023-01-20] MEDS ORDERED: MIDAZOLAM HCL 2 MG/2ML VIAL ONE (11:38)
[2023-01-21] VITALS (14 sets, daily range): BP systolic 99–135; BP diastolic 38–94; TEMP 97.3–98.8; O2SAT 93–100
[2023-01-21] MEDS: ALBUTEROL HALF STRENGTH 1.25 MG/3 ML VIAL.NEB NEB SCH ×4 (02:04→20:03)
[2023-01-21] MEDS: IPRATROPIUM NEB FS 0.5 MG/2.5 ML AMPUL.NEB NEB SCH ×4 (02:04→20:03)
[2023-01-21] MEDS: CHOLECALCIFEROL 1,000 UNIT TABLET (VIT D3) PO SCH (08:28)
[2023-01-21] MEDS: TRAMADOL HCL 50 MG TABLET PO SCH ×3 (08:29→16:20)
[2023-01-21] MEDS: PANTOPRAZOLE 40 MG TABLET.DR PO SCH (08:29)
[2023-01-21] MEDS: FERROUS SULFATE (325 MG) 325 MG/TAB TABLET PO SCH ×2 (08:29→16:20)
[2023-01-21] MEDS: ATORVASTATIN 40 MG TABLET PO SCH (08:29)
[2023-01-21] MEDS: GABAPENTIN 100 MG CAPSULE PO SCH (08:29)
[2023-01-21] MEDS: DILTIAZEM HCL CD 300 MG PO SCH (08:30)
[2023-01-21] MEDS: CLOTRIMAZOLE 1% 15 GM TUBE TP SCH ×2 (08:35→16:24)
[2023-01-21 09:27] LABS: BASOPHILS % (AUTO) 0.2 % (0.0-2.0); EOSINOPHILS # (AUTO) 0.7 K/uL (0.0-0.7); EOSINOPHILS % (AUTO) 8.6 % (0.0-6.0); HEMATOCRIT 24 % (33-45); HEMOGLOBIN 7.7 g/dL (11.5-14.8); LYMPHOCYTES # (AUTO) 0.9 K/uL (0.8-4.8); LYMPHOCYTES % (AUTO) 11.6 % (20.0-44.0); MEAN CORPUSCULAR HEMOGLOBIN 29 PG (26.0-33.0); MEAN CORPUSCULAR HGB CONC 32 g/dl (31.0-36.0); MEAN CORPUSCULAR VOLUME 93 fL (82-100); MONOCYTES # (AUTO) 0.9 K/uL (0.1-1.30); MONOCYTES % (AUTO) 11.8 % (2.0-12.0); NEUTROPHILS # (AUTO) 5.3 K/uL (1.8-8.9); NEUTROPHILS % (AUTO) 67.8 % (43.0-81.0); PLATELET COUNT (AUTO) 184 K/uL (150-450); RED BLOOD CELL COUNT(AUTO) 2.62 MIL/uL (4.0-5.2); RED CELL DISTRIBUTION WIDTH 14.4 % (11.5-15.0); WHITE BLOOD COUNT (AUTO) 7.8 K/uL (4.3-11.0)
[2023-01-21 09:42] LABS: CALCIUM, SERUM 9.1 mg/dL (8.5-10.1); CARBON DIOXIDE 29 mmol/L (21-32); CHLORIDE 103 mmol/L (98-107); CREATININE 2.8 mg/dL (0.6-1.3); GLUCOSE 115 mg/dL (74-106); POTASSIUM 4.5 mmol/L (3.5-5.1); SODIUM SERUM 139 mmol/L (136-145); UREA NITROGEN, BLOOD 60 mg/dL (7-18)
[2023-01-22] VITALS (9 sets, daily range): BP systolic 91–100; BP diastolic 44–58; TEMP 97.5–99; O2SAT 95–99
[2023-01-22] MEDS: IPRATROPIUM NEB FS 0.5 MG/2.5 ML AMPUL.NEB NEB SCH ×4 (01:28→19:30)
[2023-01-22] MEDS: ALBUTEROL HALF STRENGTH 1.25 MG/3 ML VIAL.NEB NEB SCH ×4 (01:28→19:30)
[2023-01-22 08:07] LABS: HEPATITIS Be AB Positive (Negative)
[2023-01-22] MEDS: GABAPENTIN 100 MG CAPSULE PO SCH (08:23)
[2023-01-22] MEDS: FERROUS SULFATE (325 MG) 325 MG/TAB TABLET PO SCH ×2 (08:23→17:46)
[2023-01-22] MEDS: CHOLECALCIFEROL 1,000 UNIT TABLET (VIT D3) PO SCH (08:23)
[2023-01-22] MEDS: TRAMADOL HCL 50 MG TABLET PO SCH ×3 (08:24→17:46)
[2023-01-22] MEDS: DILTIAZEM HCL CD 300 MG PO SCH (08:24)
[2023-01-22] MEDS: PANTOPRAZOLE 40 MG TABLET.DR PO SCH (08:24)
[2023-01-22] MEDS: ATORVASTATIN 40 MG TABLET PO SCH (08:24)
[2023-01-22 09:16] LABS: BASOPHILS % (AUTO) 0.2 % (0.0-2.0); EOSINOPHILS # (AUTO) 0.8 K/uL (0.0-0.7); EOSINOPHILS % (AUTO) 10.2 % (0.0-6.0); HEMATOCRIT 24 % (33-45); HEMOGLOBIN 7.5 g/dL (11.5-14.8); LYMPHOCYTES # (AUTO) 1.2 K/uL (0.8-4.8); LYMPHOCYTES % (AUTO) 15.9 % (20.0-44.0); MEAN CORPUSCULAR HEMOGLOBIN 30 PG (26.0-33.0); MEAN CORPUSCULAR HGB CONC 32 g/dl (31.0-36.0); MEAN CORPUSCULAR VOLUME 93 fL (82-100); MONOCYTES % (AUTO) 13.1 % (2.0-12.0); NEUTROPHILS # (AUTO) 4.5 K/uL (1.8-8.9); NEUTROPHILS % (AUTO) 60.6 % (43.0-81.0); PLATELET COUNT (AUTO) 179 K/uL (150-450); RED BLOOD CELL COUNT(AUTO) 2.52 MIL/uL (4.0-5.2); RED CELL DISTRIBUTION WIDTH 14.9 % (11.5-15.0); WHITE BLOOD COUNT (AUTO) 7.4 K/uL (4.3-11.0)
[2023-01-22 09:31] LABS: CALCIUM, SERUM 9.3 mg/dL (8.5-10.1); CARBON DIOXIDE 28 mmol/L (21-32); CHLORIDE 104 mmol/L (98-107); CREATININE 2.6 mg/dL (0.6-1.3); GLUCOSE 112 mg/dL (74-106); POTASSIUM 4.3 mmol/L (3.5-5.1); SODIUM SERUM 141 mmol/L (136-145); UREA NITROGEN, BLOOD 59 mg/dL (7-18)
[2023-01-22] MEDS: CLOTRIMAZOLE 1% 15 GM TUBE TP SCH ×2 (09:53→18:13)
== END 2023-01-22 20:35 | disposition home health service (06) | DRG 673 ==
LOC: ER 23:40 → TELE 01-17 03:06
PROVIDERS: ADMIT Nurse Practitioner Acute Care; ATTEND Nurse Practitioner Acute Care
PROC: 30233N1 Transfusion of Nonautologous Red Blood Cells into Peripheral Vein, Percutaneous Approach (ICD-10-PCS; 2023-01-17)
PROC: 03180ZD Bypass Left Brachial Artery to Upper Arm Vein, Open Approach (ICD-10-PCS; principal; 2023-01-20)
DX: N17.0 Acute kidney failure with tubular necrosis (principal); I21.A1 Myocardial infarction type 2; J96.21 Acute and chronic respiratory failure with hypoxia; J96.22 Acute and chronic respiratory failure with hypercapnia; I50.33 Acute on chronic diastolic (congestive) heart failure; I13.0 Hypertensive heart and chronic kidney disease with heart failure and stage 1 through stage 4 chronic kidney disease, or unspecified chronic kidney disease; E44.0 Moderate protein-calorie malnutrition; Z68.42 Body mass index [BMI] 45.0-49.9, adult; I48.20 Chronic atrial fibrillation, unspecified; E66.2 Morbid (severe) obesity with alveolar hypoventilation; I13.2 Hypertensive heart and chronic kidney disease with heart failure and with stage 5 chronic kidney disease, or end stage renal disease; D63.1 Anemia in chronic kidney disease; E78.5 Hyperlipidemia, unspecified; E87.5 Hyperkalemia; J44.9 Chronic obstructive pulmonary disease, unspecified; Z79.01 Long term (current) use of anticoagulants; Z99.81 Dependence on supplemental oxygen; Z71.3 Dietary counseling and surveillance; E88.09 Other disorders of plasma-protein metabolism, not elsewhere classified; N18.5 Chronic kidney disease, stage 5
CPT/HCPCS: 36415; 71045-TC; 76770-TC; 80048-TC; 80061-TC; 80076-TC; 83735-TC; 83880; 84100-TC; 84443-TC; 84484-TC; 85025-TC; 85027-TC; 85730-TC; 86704; 86705; 86707; 86803; 86850-TC; 87350; 93307-TC; 94799-TC; 97110-TC; A4565; C1769; C9113; G0378; J0690; J1644; J1940; J2250; J2405; J3010; J3490; J7030; P9016

== ENCOUNTER 2023-01-31 12:12 | Inpatient (IN) | payer MEDICARE, OTHER ==
[~2023-01-31] VITALS: Ht 157.5 cm; Wt 118.4 kg
[~2023-01-31 12:12] MED LIST changes: +APIX5TAB PO; -FURO40TA5 PO
[2023-01-31 12:52] LABS: BASOPHILS % (AUTO) 0.3 % (0.0-2.0); CALCIUM, SERUM 9.5 mg/dL (8.5-10.1); CARBON DIOXIDE 26 mmol/L (21-32); CHLORIDE 106 mmol/L (98-107); CREATININE 2.1 mg/dL (0.6-1.3); EOSINOPHILS # (AUTO) 1.1 K/uL (0.0-0.7); EOSINOPHILS % (AUTO) 12.2 % (0.0-6.0); GLUCOSE 104 mg/dL (74-106); HEMATOCRIT 23 % (33-45); HEMOGLOBIN 7.4 g/dL (11.5-14.8); LYMPHOCYTES # (AUTO) 1.6 K/uL (0.8-4.8); LYMPHOCYTES % (AUTO) 18.1 % (20.0-44.0); MEAN CORPUSCULAR HEMOGLOBIN 30 PG (26.0-33.0); MEAN CORPUSCULAR HGB CONC 32 g/dl (31.0-36.0); MEAN CORPUSCULAR VOLUME 94 fL (82-100); MONOCYTES # (AUTO) 1.2 K/uL (0.1-1.30); MONOCYTES % (AUTO) 13.4 % (2.0-12.0); NEUTROPHILS # (AUTO) 4.9 K/uL (1.8-8.9); PLATELET COUNT (AUTO) 182 K/uL (150-450); POTASSIUM 5.3 mmol/L (3.5-5.1); RED BLOOD CELL COUNT(AUTO) 2.47 MIL/uL (4.0-5.2); RED CELL DISTRIBUTION WIDTH 15.1 % (11.5-15.0); SODIUM SERUM 141 mmol/L (136-145); UREA NITROGEN, BLOOD 36 mg/dL (7-18); WHITE BLOOD COUNT (AUTO) 8.7 K/uL (4.3-11.0)
[2023-01-31] MEDS ORDERED: PIPERACILLIN /TAZOBACTAM 3.375 G in IV D5W 50 ML IV ONE (13:00)
[2023-01-31] MEDS ORDERED: AZITHROMYCIN 500 MG in IV D5W 250 ML IV ONE (13:00)
[2023-01-31] MEDS ORDERED: VANCOMYCIN 1 GM in IV D5W 250 ML IV ONE (13:00)
[2023-01-31 13:05] LABS: ALANINE AMINOTRANSFERASE 37 U/L (12-78); ALBUMIN 2.9 g/dL (3.4-5.0); ALKALINE PHOSPHATASE 72 U/L (46-116); ASPARTATE AMINOTRANSFERASE 23 U/L (15-37); BILIRUBIN,DIRECT 0.2 mg/dL (0.0-0.2); BILIRUBIN,TOTAL 0.4 mg/dL (0.2-1.0); NT-PRO BNP 1013 pg/mL (0-125); TOTAL PROTEIN, SERUM 7.1 g/dL (6.4-8.2)
[2023-01-31] MEDS ORDERED: PIPERACI/TAZO 3.375GM/D5W 50ML PB IV ONE (13:08)
[2023-01-31] MEDS ORDERED: FUROSEMIDE 20 MG/2 ML VIAL ONE (13:43)
[2023-01-31] MEDS ORDERED: ASPIRIN 325 MG TABLET PO ONE (14:00)
[2023-01-31] MEDS ORDERED: FUROSEMIDE 20 MG/2 ML VIAL IV ONE (14:00)
[2023-01-31] MEDS ORDERED: ASPIRIN 325 MG TABLET ONE (14:17)
[2023-01-31] MEDS ORDERED: ACETAMINOPHEN 325 MG TABLET PO PRN (15:00)
[2023-01-31] MEDS ORDERED: Z GUARD REMEDY 4 OZ OINT TP PRN (15:00)
[2023-01-31] MEDS ORDERED: MAG HYDROX/AL HYDROX/SIMETH 30 ML UDC PO PRN (15:00)
[2023-01-31] MEDS ORDERED: FUROSEMIDE 40 MG/4 ML VIAL IV ONE (15:00)
[2023-01-31] MEDS ORDERED: MAGNESIUM HYDROXIDE 30 ML UDC PO PRN (15:00)
[2023-01-31] MEDS ORDERED: ONDANSETRON HCL/PF 4 MG/2 ML VIAL IVP PRN (15:00)
[2023-01-31] MEDS ORDERED: FURO-144 PO (16:34)
[2023-01-31] MEDS ORDERED: HYDR-4209 PO (16:34)
[2023-01-31] MEDS ORDERED: ALBU18HF2 INH (16:34)
[2023-01-31] MEDS ORDERED: VENL75TA4 PO (16:34)
[2023-01-31] MEDS: TRAMADOL HCL 50 MG TABLET PO SCH (17:00)
[2023-01-31] MEDS: FERROUS SULFATE (325 MG) 325 MG/TAB TABLET PO SCH (18:16)
[2023-01-31] MEDS: APIXABAN 2.5 MG TABLET PO SCH (18:19)
[2023-01-31 19:00] VITALS: BP 98/47; TEMP 98.1; O2SAT 100
[2023-01-31] MEDS ORDERED: IPRATROPIUM NEB FS 0.5 MG/2.5 ML AMPUL.NEB NEB PRN (22:30)
[2023-01-31] MEDS ORDERED: ALBUTEROL FS 2.5 MG/0.5 ML VIAL.NEB NEB PRN (22:30)
[2023-02-01 06:54] LABS: BASOPHILS % (AUTO) 0.2 % (0.0-2.0); EOSINOPHILS # (AUTO) 1.1 K/uL (0.0-0.7); EOSINOPHILS % (AUTO) 13.6 % (0.0-6.0); HEMATOCRIT 24 % (33-45); HEMOGLOBIN 7.5 g/dL (11.5-14.8); LYMPHOCYTES # (AUTO) 1.3 K/uL (0.8-4.8); LYMPHOCYTES % (AUTO) 16.1 % (20.0-44.0); MEAN CORPUSCULAR HEMOGLOBIN 30 PG (26.0-33.0); MEAN CORPUSCULAR HGB CONC 32 g/dl (31.0-36.0); MEAN CORPUSCULAR VOLUME 96 fL (82-100); MONOCYTES # (AUTO) 1.2 K/uL (0.1-1.30); MONOCYTES % (AUTO) 14.1 % (2.0-12.0); NEUTROPHILS # (AUTO) 4.6 K/uL (1.8-8.9); PLATELET COUNT (AUTO) 158 K/uL (150-450); RED BLOOD CELL COUNT(AUTO) 2.48 MIL/uL (4.0-5.2); RED CELL DISTRIBUTION WIDTH 14.9 % (11.5-15.0); WHITE BLOOD COUNT (AUTO) 8.2 K/uL (4.3-11.0)
[2023-02-01 07:28] LABS: CALCIUM, SERUM 9.4 mg/dL (8.5-10.1); CARBON DIOXIDE 27 mmol/L (21-32); CHLORIDE 106 mmol/L (98-107); CREATININE 2.1 mg/dL (0.6-1.3); GLUCOSE 106 mg/dL (74-106); MAGNESIUM 2.6 mg/dL (1.8-2.4); PHOSPHORUS 4.4 mg/dL (2.5-4.9); POTASSIUM 4.9 mmol/L (3.5-5.1); SODIUM SERUM 142 mmol/L (136-145); UREA NITROGEN, BLOOD 34 mg/dL (7-18)
[2023-02-01] MEDS: TRAMADOL HCL 50 MG TABLET PO SCH ×3 (08:31→16:48)
[2023-02-01] MEDS: FERROUS SULFATE (325 MG) 325 MG/TAB TABLET PO SCH ×2 (08:31→16:48)
[2023-02-01] MEDS: GABAPENTIN 100 MG CAPSULE PO SCH (08:31)
[2023-02-01] MEDS: ATORVASTATIN 40 MG TABLET PO SCH (08:31)
[2023-02-01] MEDS: DILTIAZEM HCL CD 300 MG PO SCH (08:35)
[2023-02-01 09:35] VITALS: BP 134/53; TEMP 97.7; O2SAT 100
[2023-02-01] MEDS: APIXABAN 2.5 MG TABLET PO SCH ×2 (09:50→16:50)
[2023-02-01 09:57] LABS: ABG BASE EXCESS 6.4 mmol/L; ABG PCO2 51.4 mmHg (35.0-45.0); ABG PH 7.409 (7.350-7.450); ABG PO2 130.3 mmHg (75.0-100.0); ABG TOTAL HEMOGLOBIN 7.8 G/dL (12.0-16.0); AaDO2 37.7 mmHg; COHb 0.3 % (0.5-1.5); MetHb 0.3 % (0.0-1.5); O2Hb 97.4 % (94.0-97.0); SITE, ABG Right Radial; VENT MODE, BG 3LNC
[2023-02-01 11:47] LABS: IRON, SERUM 29 ug/dl (50-175); TOTAL IRON BINDING CAPACITY 245 ug/dl (250-450)
[2023-02-01 12:00] VITALS: BP 110/49; TEMP 97.9; O2SAT 99
[2023-02-01 12:17] LABS: FERRITIN 635 ng/mL (8-388)
[2023-02-01 13:55] LABS: APPEARANCE,URINE CLEAR (CLEAR); BILIRUBIN,URINE NEGATIVE (NEGATIVE); BLOOD, URINE TRACE-INTA Ery/uL (NEGATIVE); COLOR,URINE YELLOW (YELLOW); KETONES,URINE NEGATIVE (NEGATIVE); LEUKOCYTE ESTERASE ,URINE NEGATIVE (NEGATIVE); NITRITE, URINE NEGATIVE (NEGATIVE); PROTEIN,URINE TRACE mg/dl (NEGATIVE); UGLUCOSE NEGATIVE (NEGATIVE)
[2023-02-01 13:56] LABS: ADD URINE CULTURE NO; BACTERIA,URINE Rare /HPF (None Seen); EOSINOPHIL,URINE None Seen; RBC,URINE 0-2 /HPF (0-2); SQUAMOUS EPITHELIAL CELL,UR Few /HPF (None Seen); WBC,URINE 0-2 /HPF (0-3)
[2023-02-01 14:00] LABS: CREATININE, URINE 44.1 MG/DL (30.0-125.0); URINE TOTAL PROTEIN 28.3 mg/dL (0-11.9)
[2023-02-01 16:00] VITALS: BP 102/41; TEMP 98.1; O2SAT 99
[2023-02-01 20:00] VITALS: BP 115/53; TEMP 98; O2SAT 97
[2023-02-02] VITALS: BP 120/47; TEMP 99; O2SAT 96
[2023-02-02 04:00] VITALS: BP 119/51; TEMP 98.8; O2SAT 96
[2023-02-02 08:00] VITALS: BP 126/48; TEMP 96.9; O2SAT 97
[2023-02-02 08:12] LABS: ALANINE AMINOTRANSFERASE 34 U/L (12-78); ALBUMIN 2.7 g/dL (3.4-5.0); ALKALINE PHOSPHATASE 64 U/L (46-116); ASPARTATE AMINOTRANSFERASE 23 U/L (15-37); BILIRUBIN,TOTAL 0.4 mg/dL (0.2-1.0); CALCIUM, SERUM 9.3 mg/dL (8.5-10.1); CARBON DIOXIDE 26 mmol/L (21-32); CHLORIDE 107 mmol/L (98-107); CREATININE 1.8 mg/dL (0.6-1.3); GLUCOSE 100 mg/dL (74-106); MAGNESIUM 2.3 mg/dL (1.8-2.4); PHOSPHORUS 4.1 mg/dL (2.5-4.9); POTASSIUM 4.8 mmol/L (3.5-5.1); SODIUM SERUM 142 mmol/L (136-145); TOTAL PROTEIN, SERUM 6.8 g/dL (6.4-8.2); UREA NITROGEN, BLOOD 29 mg/dL (7-18)
[2023-02-02] MEDS: DILTIAZEM HCL CD 300 MG PO SCH (09:00)
[2023-02-02 09:20] LABS: BASOPHILS % (AUTO) 0.1 % (0.0-2.0); EOSINOPHILS # (AUTO) 1.1 K/uL (0.0-0.7); EOSINOPHILS % (AUTO) 12.5 % (0.0-6.0); HEMATOCRIT 25 % (33-45); HEMOGLOBIN 7.8 g/dL (11.5-14.8); LYMPHOCYTES # (AUTO) 1.3 K/uL (0.8-4.8); MEAN CORPUSCULAR HEMOGLOBIN 30 PG (26.0-33.0); MEAN CORPUSCULAR HGB CONC 31 g/dl (31.0-36.0); MEAN CORPUSCULAR VOLUME 94 fL (82-100); MONOCYTES # (AUTO) 1.1 K/uL (0.1-1.30); MONOCYTES % (AUTO) 12.4 % (2.0-12.0); NEUTROPHILS # (AUTO) 5.4 K/uL (1.8-8.9); PLATELET COUNT (AUTO) 170 K/uL (150-450); RED BLOOD CELL COUNT(AUTO) 2.65 MIL/uL (4.0-5.2); RED CELL DISTRIBUTION WIDTH 14.7 % (11.5-15.0)
[2023-02-02] MEDS: ATORVASTATIN 40 MG TABLET PO SCH (09:44)
[2023-02-02] MEDS: TRAMADOL HCL 50 MG TABLET PO SCH ×3 (09:46→17:00)
[2023-02-02] MEDS: APIXABAN 2.5 MG TABLET PO SCH ×2 (09:47→17:52)
[2023-02-02] MEDS: FERROUS SULFATE (325 MG) 325 MG/TAB TABLET PO SCH ×2 (09:47→17:51)
[2023-02-02] MEDS: GABAPENTIN 100 MG CAPSULE PO SCH (09:47)
[2023-02-02] MEDS: MECLIZINE HCL 25 MG TABLET PO PRN ×2 (11:39→20:04)
[2023-02-02] MEDS: LEVOFLOXACIN 500 MG /D5W 100ML 100 ML IV SCH (12:10)
[2023-02-02 20:00] VITALS: BP 116/46; TEMP 98.8; O2SAT 95
[2023-02-03] VITALS: BP 123/54; TEMP 98.6; O2SAT 98
[2023-02-03 04:00] VITALS: BP 116/49; TEMP 98.4; O2SAT 97
[2023-02-03 07:00] VITALS: BP 97/56; TEMP 99; O2SAT 97
[2023-02-03] MEDS: FERROUS SULFATE (325 MG) 325 MG/TAB TABLET PO SCH ×2 (09:58→18:06)
[2023-02-03] MEDS: GABAPENTIN 100 MG CAPSULE PO SCH (09:59)
[2023-02-03] MEDS: TRAMADOL HCL 50 MG TABLET PO SCH ×3 (09:59→18:07)
[2023-02-03] MEDS: ATORVASTATIN 40 MG TABLET PO SCH (09:59)
[2023-02-03] MEDS: APIXABAN 2.5 MG TABLET PO SCH ×2 (10:01→18:07)
[2023-02-03] MEDS: DILTIAZEM HCL CD 300 MG PO SCH (10:13)
[2023-02-03] MEDS ORDERED: LEVO500T90 PO (10:13)
[2023-02-03 11:04] LABS: ALANINE AMINOTRANSFERASE 39 U/L (12-78); ALBUMIN 2.5 g/dL (3.4-5.0); ALKALINE PHOSPHATASE 59 U/L (46-116); ASPARTATE AMINOTRANSFERASE 23 U/L (15-37); BILIRUBIN,TOTAL 0.5 mg/dL (0.2-1.0); CALCIUM, SERUM 9.2 mg/dL (8.5-10.1); CARBON DIOXIDE 29 mmol/L (21-32); CHLORIDE 106 mmol/L (98-107); GLUCOSE 95 mg/dL (74-106); MAGNESIUM 2.1 mg/dL (1.8-2.4); PHOSPHORUS 4.3 mg/dL (2.5-4.9); POTASSIUM 5.2 mmol/L (3.5-5.1); SODIUM SERUM 140 mmol/L (136-145); TOTAL PROTEIN, SERUM 6.8 g/dL (6.4-8.2); UREA NITROGEN, BLOOD 30 mg/dL (7-18)
[2023-02-03] MEDS: LEVOFLOXACIN 500 MG /D5W 100ML 100 ML IV SCH (11:19)
[2023-02-03 11:26] LABS: BASOPHILS % (AUTO) 0.3 % (0.0-2.0); EOSINOPHILS # (AUTO) 1.1 K/uL (0.0-0.7); EOSINOPHILS % (AUTO) 13.3 % (0.0-6.0); HEMATOCRIT 23 % (33-45); HEMOGLOBIN 7.6 g/dL (11.5-14.8); LYMPHOCYTES # (AUTO) 1.4 K/uL (0.8-4.8); MEAN CORPUSCULAR HEMOGLOBIN 30 PG (26.0-33.0); MEAN CORPUSCULAR HGB CONC 33 g/dl (31.0-36.0); MEAN CORPUSCULAR VOLUME 94 fL (82-100); MONOCYTES # (AUTO) 1.1 K/uL (0.1-1.30); MONOCYTES % (AUTO) 13.5 % (2.0-12.0); NEUTROPHILS # (AUTO) 4.7 K/uL (1.8-8.9); NEUTROPHILS % (AUTO) 55.9 % (43.0-81.0); PLATELET COUNT (AUTO) 163 K/uL (150-450); RED BLOOD CELL COUNT(AUTO) 2.49 MIL/uL (4.0-5.2); RED CELL DISTRIBUTION WIDTH 14.8 % (11.5-15.0); WHITE BLOOD COUNT (AUTO) 8.4 K/uL (4.3-11.0)
[2023-02-03 12:03] VITALS: BP 108/57; TEMP 99; O2SAT 96
[2023-02-03] MEDS ORDERED: SODIUM POLYSTYRENE SULFONATE 15 G/60 ML BOTTLE PO ONE ×2 (13:00)
[2023-02-03 16:00] VITALS: BP 115/60; TEMP 98; O2SAT 95
[2023-02-04 19:06] LABS: *MYCOPLASMA PNEUMONIAE IgG 147 U/mL (0-99); *MYCOPLASMA PNEUMONIAE IgM <770 U/mL (0-769); LEGIONELLA PNEUMOPHILIA AB <0.91 OD ratio (0.00-0.90)
== END 2023-02-03 20:28 | disposition home health service (06) | DRG 280 ==
LOC: ER 12:12 → MED 14:11 → TELE 15:28
PROVIDERS: ADMIT Internal Medicine; ATTEND Internal Medicine
PROC: 05HD33Z Insertion of Infusion Device into Right Cephalic Vein, Percutaneous Approach (ICD-10-PCS; principal; 2023-01-31)
DX: I13.0 Hypertensive heart and chronic kidney disease with heart failure and stage 1 through stage 4 chronic kidney disease, or unspecified chronic kidney disease (principal); I21.A1 Myocardial infarction type 2; I50.33 Acute on chronic diastolic (congestive) heart failure; J15.9 Unspecified bacterial pneumonia; N18.4 Chronic kidney disease, stage 4 (severe); E66.2 Morbid (severe) obesity with alveolar hypoventilation; E27.40 Unspecified adrenocortical insufficiency; J44.0 Chronic obstructive pulmonary disease with (acute) lower respiratory infection; J44.1 Chronic obstructive pulmonary disease with (acute) exacerbation; N39.0 Urinary tract infection, site not specified; E78.5 Hyperlipidemia, unspecified; D50.9 Iron deficiency anemia, unspecified; E83.41 Hypermagnesemia; E87.5 Hyperkalemia; G62.9 Polyneuropathy, unspecified; J44.9 Chronic obstructive pulmonary disease, unspecified; Z79.01 Long term (current) use of anticoagulants; I48.0 Paroxysmal atrial fibrillation
CPT/HCPCS: 36415; 36600; 71045-TC; 71250-TC; 80048-TC; 80053-TC; 80076-TC; 81001; 82570-TC; 82728-TC; 82803-TC; 83540-TC; 83690-TC; 83735-TC; 83880; 84100-TC; 84300-TC; 84484-TC; 85025-TC; 86480; 86713; 86738; 97110-TC; 97530-TC; A4223; G0378; J0456; J1940; J1956; J2543; J3370; J7060; J8597

== ENCOUNTER 2023-03-14 19:39 | Inpatient (IN) | payer MEDICARE, OTHER ==
[~2023-03-14] VITALS: Ht 157.5 cm; Wt 109.3 kg
[~2023-03-14 19:39] MED LIST changes: +ALBU18HF2 INH; +HYDR-4209 PO; +LEVO500T90 PO
[2023-03-14 20:56] LABS: BASOPHILS # (AUTO) 0.1 K/uL (0.0-0.2); BASOPHILS % (AUTO) 0.7 % (0.0-2.0); EOSINOPHILS # (AUTO) 0.7 K/uL (0.0-0.7); EOSINOPHILS % (AUTO) 7.8 % (0.0-6.0); HEMATOCRIT 25 % (33-45); HEMOGLOBIN 7.6 g/dL (11.5-14.8); LYMPHOCYTES # (AUTO) 1.5 K/uL (0.8-4.8); LYMPHOCYTES % (AUTO) 15.4 % (20.0-44.0); MEAN CORPUSCULAR HEMOGLOBIN 30 PG (26.0-33.0); MEAN CORPUSCULAR HGB CONC 31 g/dl (31.0-36.0); MEAN CORPUSCULAR VOLUME 96 fL (82-100); MONOCYTES # (AUTO) 0.9 K/uL (0.1-1.30); MONOCYTES % (AUTO) 9.3 % (2.0-12.0); NEUTROPHILS # (AUTO) 6.4 K/uL (1.8-8.9); NEUTROPHILS % (AUTO) 66.8 % (43.0-81.0); PLATELET COUNT (AUTO) 222 K/uL (150-450); RED BLOOD CELL COUNT(AUTO) 2.55 MIL/uL (4.0-5.2); RED CELL DISTRIBUTION WIDTH 15.8 % (11.5-15.0); WHITE BLOOD COUNT (AUTO) 9.5 K/uL (4.3-11.0)
[2023-03-14 21:06] LABS: CALCIUM, SERUM 9.3 mg/dL (8.5-10.1); CARBON DIOXIDE 32 mmol/L (21-32); CHLORIDE 104 mmol/L (98-107); GLUCOSE 118 mg/dL (74-106); POTASSIUM 4.6 mmol/L (3.5-5.1); SODIUM SERUM 144 mmol/L (136-145); UREA NITROGEN, BLOOD 61 mg/dL (7-18)
[2023-03-14 21:19] LABS: ALANINE AMINOTRANSFERASE 29 U/L (12-78); ALBUMIN 2.7 g/dL (3.4-5.0); ALKALINE PHOSPHATASE 62 U/L (46-116); ASPARTATE AMINOTRANSFERASE 41 U/L (15-37); BILIRUBIN,TOTAL 0.3 mg/dL (0.2-1.0); NT-PRO BNP 1071 pg/mL (0-125); TOTAL PROTEIN, SERUM 7.2 g/dL (6.4-8.2)
[2023-03-14] MEDS ORDERED: FUROSEMIDE 40 MG/4 ML VIAL ONE (21:35)
[2023-03-14] MEDS: FUROSEMIDE 40 MG/4 ML VIAL IV ONE ×2 (21:37→21:58)
[2023-03-14 22:05] LABS: ANISOCYTOSIS 1+; BAND % (MANUAL) 1 % (0.0-5.0); EOSINOPHILS % (MANUAL) 7 % (0-4); LYMPHOCYTES % (MANUAL) 11 % (16-48); MONOCYTES % (MANUAL) 12 % (0-11.0); NEUTROPHILS % (MANUAL) 69 (42-76); PLATELET ESTIMATE ADEQUATE
[2023-03-14 22:06] LABS: ROULEAUX 1+
[2023-03-14] MEDS ORDERED: ONDANSETRON HCL/PF 4 MG/2 ML VIAL IVP PRN (22:30)
[2023-03-14] MEDS ORDERED: MAG HYDROX/AL HYDROX/SIMETH 30 ML UDC PO PRN (22:30)
[2023-03-14] MEDS ORDERED: Z GUARD REMEDY 4 OZ OINT TP PRN (22:30)
[2023-03-14] MEDS ORDERED: ACETAMINOPHEN 325 MG TABLET PO PRN (22:30)
[2023-03-14] MEDS ORDERED: ZOLPIDEM TARTRATE 5 MG TABLET PO PRN (22:30)
[2023-03-14] MEDS ORDERED: MAGNESIUM HYDROXIDE 30 ML UDC PO PRN (22:30)
[2023-03-15 06:59] LABS: BASOPHILS # (AUTO) 0.1 K/uL (0.0-0.2); BASOPHILS % (AUTO) 0.4 % (0.0-2.0); EOSINOPHILS # (AUTO) 0.7 K/uL (0.0-0.7); EOSINOPHILS % (AUTO) 5.2 % (0.0-6.0); HEMATOCRIT 24 % (33-45); HEMOGLOBIN 7.5 g/dL (11.5-14.8); LYMPHOCYTES # (AUTO) 1.5 K/uL (0.8-4.8); MEAN CORPUSCULAR HEMOGLOBIN 29 PG (26.0-33.0); MEAN CORPUSCULAR HGB CONC 31 g/dl (31.0-36.0); MEAN CORPUSCULAR VOLUME 95 fL (82-100); MONOCYTES % (AUTO) 7.6 % (2.0-12.0); NEUTROPHILS # (AUTO) 9.6 K/uL (1.8-8.9); NEUTROPHILS % (AUTO) 74.8 % (43.0-81.0); PLATELET COUNT (AUTO) 212 K/uL (150-450); RED BLOOD CELL COUNT(AUTO) 2.53 MIL/uL (4.0-5.2); RED CELL DISTRIBUTION WIDTH 15.8 % (11.5-15.0); WHITE BLOOD COUNT (AUTO) 12.8 K/uL (4.3-11.0)
[2023-03-15] MEDS ORDERED: ALBUTEROL FS 2.5 MG/0.5 ML VIAL.NEB NEB PRN (07:30)
[2023-03-15 07:39] LABS: CALCIUM, SERUM 8.7 mg/dL (8.5-10.1); CARBON DIOXIDE 32 mmol/L (21-32); CHLORIDE 101 mmol/L (98-107); CREATININE 2.9 mg/dL (0.6-1.3); GLUCOSE 115 mg/dL (74-106); MAGNESIUM 2.5 mg/dL (1.8-2.4); PHOSPHORUS 4.2 mg/dL (2.5-4.9); POTASSIUM 3.6 mmol/L (3.5-5.1); SODIUM SERUM 143 mmol/L (136-145); UREA NITROGEN, BLOOD 60 mg/dL (7-18)
[2023-03-15] MEDS: PANTOPRAZOLE 40 MG TABLET.DR PO SCH (08:33)
[2023-03-15] MEDS: FERROUS SULFATE (325 MG) 325 MG/TAB TABLET PO SCH ×2 (08:34→17:20)
[2023-03-15] MEDS: CHOLECALCIFEROL 1,000 UNIT TABLET (VIT D3) PO SCH (08:34)
[2023-03-15] MEDS: GABAPENTIN 100 MG CAPSULE PO SCH (08:34)
[2023-03-15] MEDS: DILTIAZEM HCL CD 300 MG PO SCH (08:35)
[2023-03-15] MEDS: APIXABAN 2.5 MG TABLET PO SCH ×2 (08:51→17:00)
[2023-03-15] MEDS ORDERED: LOSARTAN/HCTZ 50-12.5MG/ 1 EA TABLET PO SCH (09:00)
[2023-03-15] MEDS ORDERED: MIRT-91 PO (09:54)
[2023-03-15] MEDS ORDERED: VENL75TA4 PO (09:54)
[2023-03-15] MEDS ORDERED: FURO-144 PO (09:54)
[2023-03-15] MEDS ORDERED: MELO-107 PO (09:54)
[2023-03-15] MEDS ORDERED: DONE10TA44 PO (09:54)
[2023-03-15 15:11] LABS: THYROID STIMULATING HORMONE 2.377 uIU/mL (0.358-3.74)
[2023-03-15 20:00] VITALS: BP 99/44; TEMP 97.7; O2SAT 98
[2023-03-15] MEDS: ATORVASTATIN 40 MG TABLET PO SCH (21:38)
[2023-03-16] VITALS: BP 111/54; TEMP 97.7; O2SAT 98
[2023-03-16 04:00] VITALS: BP 95/44; TEMP 97.9; O2SAT 97
[2023-03-16] MEDS ORDERED: BUMETANIDE INJ 4 MG in IV D5W 24 ML IV ONE (07:30)
[2023-03-16] MEDS: PANTOPRAZOLE 40 MG TABLET.DR PO SCH (07:51)
[2023-03-16] MEDS: GABAPENTIN 100 MG CAPSULE PO SCH (09:11)
[2023-03-16] MEDS: FERROUS SULFATE (325 MG) 325 MG/TAB TABLET PO SCH ×2 (09:11→17:15)
[2023-03-16] MEDS: DILTIAZEM HCL CD 300 MG PO SCH (09:11)
[2023-03-16] MEDS: APIXABAN 2.5 MG TABLET PO SCH ×2 (09:12→17:16)
[2023-03-16] MEDS: CHOLECALCIFEROL 1,000 UNIT TABLET (VIT D3) PO SCH (10:58)
[2023-03-16 12:46] VITALS: BP 111/50; TEMP 97.9; O2SAT 97
[2023-03-16 16:00] VITALS: BP 114/52; TEMP 97.9; O2SAT 97
[2023-03-16 20:00] VITALS: BP 128/47; TEMP 98.8; O2SAT 98
[2023-03-16] MEDS: ATORVASTATIN 40 MG TABLET PO SCH (21:58)
[2023-03-17] VITALS (10 sets, daily range): BP systolic 96–135; BP diastolic 41–72; TEMP 97.9–98.9; O2SAT 96–100
[2023-03-17] MEDS ORDERED: BUMETANIDE INJ 4 MG in IV D5W 24 ML IV ONE (07:00)
[2023-03-17] MEDS: CHOLECALCIFEROL 1,000 UNIT TABLET (VIT D3) PO SCH (08:29)
[2023-03-17] MEDS: APIXABAN 2.5 MG TABLET PO SCH ×3 (08:30→17:00)
[2023-03-17] MEDS: FERROUS SULFATE (325 MG) 325 MG/TAB TABLET PO SCH ×2 (08:30→17:26)
[2023-03-17] MEDS: DILTIAZEM HCL CD 300 MG PO SCH (08:39)
[2023-03-17] MEDS: PANTOPRAZOLE 40 MG TABLET.DR PO SCH (08:39)
[2023-03-17 08:50] LABS: BASOPHILS % (AUTO) 0.1 % (0.0-2.0); CARBON DIOXIDE 38 mmol/L (21-32); CHLORIDE 102 mmol/L (98-107); CREATININE 2.4 mg/dL (0.6-1.3); EOSINOPHILS % (AUTO) 10.9 % (0.0-6.0); GLUCOSE 116 mg/dL (74-106); HEMATOCRIT 21 % (33-45); LYMPHOCYTES # (AUTO) 1.4 K/uL (0.8-4.8); LYMPHOCYTES % (AUTO) 14.4 % (20.0-44.0); MEAN CORPUSCULAR HEMOGLOBIN 30 PG (26.0-33.0); MEAN CORPUSCULAR HGB CONC 31 g/dl (31.0-36.0); MEAN CORPUSCULAR VOLUME 94 fL (82-100); MONOCYTES % (AUTO) 10.2 % (2.0-12.0); NEUTROPHILS # (AUTO) 6.1 K/uL (1.8-8.9); NEUTROPHILS % (AUTO) 64.4 % (43.0-81.0); PLATELET COUNT (AUTO) 199 K/uL (150-450); POTASSIUM 3.9 mmol/L (3.5-5.1); RED BLOOD CELL COUNT(AUTO) 2.26 MIL/uL (4.0-5.2); RED CELL DISTRIBUTION WIDTH 15.5 % (11.5-15.0); SODIUM SERUM 145 mmol/L (136-145); UREA NITROGEN, BLOOD 53 mg/dL (7-18); WHITE BLOOD COUNT (AUTO) 9.4 K/uL (4.3-11.0)
[2023-03-17 08:56] LABS: HEMOGLOBIN 6.7 g/dL (11.5-14.8)
[2023-03-17] MEDS: GABAPENTIN 100 MG CAPSULE PO SCH (09:13)
[2023-03-17 10:12] LABS: BAND % (MANUAL) 2 % (0.0-5.0); EOSINOPHILS % (MANUAL) 8 % (0-4); LYMPHOCYTES % (MANUAL) 16 % (16-48); MONOCYTES % (MANUAL) 8 % (0-11.0); NEUTROPHILS % (MANUAL) 66 (42-76); PLATELET ESTIMATE ADEQUATE
[2023-03-17 10:13] LABS: ANISOCYTOSIS 1+
[2023-03-17] MEDS: ATORVASTATIN 40 MG TABLET PO SCH (21:29)
[2023-03-18] VITALS: BP 133/65; TEMP 98; O2SAT 96
[2023-03-18 04:00] VITALS: BP 110/68; TEMP 97.9; O2SAT 99
[2023-03-18] MEDS: PANTOPRAZOLE 40 MG TABLET.DR PO SCH (07:33)
[2023-03-18 07:53] LABS: CALCIUM, SERUM 9.2 mg/dL (8.5-10.1); CARBON DIOXIDE 39 mmol/L (21-32); CHLORIDE 103 mmol/L (98-107); CREATININE 2.2 mg/dL (0.6-1.3); GLUCOSE 118 mg/dL (74-106); POTASSIUM 4.1 mmol/L (3.5-5.1); SODIUM SERUM 144 mmol/L (136-145); UREA NITROGEN, BLOOD 51 mg/dL (7-18)
[2023-03-18 08:00] VITALS: BP 120/48; TEMP 98.4; O2SAT 98
[2023-03-18] MEDS ORDERED: BUMETANIDE INJ 8 MG in IV NS 0.9% 48 ML IV ONE (08:00)
[2023-03-18 08:17] LABS: BASOPHILS % (AUTO) 0.1 % (0.0-2.0); EOSINOPHILS # (AUTO) 1.1 K/uL (0.0-0.7); HEMATOCRIT 26 % (33-45); HEMOGLOBIN 8.3 g/dL (11.5-14.8); LYMPHOCYTES # (AUTO) 1.3 K/uL (0.8-4.8); LYMPHOCYTES % (AUTO) 12.8 % (20.0-44.0); MEAN CORPUSCULAR HEMOGLOBIN 30 PG (26.0-33.0); MEAN CORPUSCULAR HGB CONC 32 g/dl (31.0-36.0); MEAN CORPUSCULAR VOLUME 94 fL (82-100); NEUTROPHILS # (AUTO) 6.8 K/uL (1.8-8.9); NEUTROPHILS % (AUTO) 66.1 % (43.0-81.0); PLATELET COUNT (AUTO) 203 K/uL (150-450); RED BLOOD CELL COUNT(AUTO) 2.75 MIL/uL (4.0-5.2); RED CELL DISTRIBUTION WIDTH 14.9 % (11.5-15.0); WHITE BLOOD COUNT (AUTO) 10.3 K/uL (4.3-11.0)
[2023-03-18] MEDS: GABAPENTIN 100 MG CAPSULE PO SCH (10:23)
[2023-03-18] MEDS: FERROUS SULFATE (325 MG) 325 MG/TAB TABLET PO SCH ×2 (10:23→17:00)
[2023-03-18] MEDS: CHOLECALCIFEROL 1,000 UNIT TABLET (VIT D3) PO SCH (10:24)
[2023-03-18 12:00] VITALS: BP 125/48; TEMP 98.4; O2SAT 98
[2023-03-18] MEDS: DILTIAZEM HCL CD 300 MG PO SCH (13:19)
[2023-03-18 16:00] VITALS: BP 126/49; TEMP 97.7; O2SAT 97
[2023-03-18 20:00] VITALS: BP 115/44; TEMP 98.6; O2SAT 97
[2023-03-18] MEDS: ATORVASTATIN 40 MG TABLET PO SCH (21:11)
[2023-03-19] VITALS: BP 110/41; TEMP 98.4; O2SAT 99
[2023-03-19 04:00] VITALS: BP 122/47; TEMP 97; O2SAT 100
[2023-03-19 06:00] LABS: BASOPHILS % (AUTO) 0.4 % (0.0-2.0); EOSINOPHILS # (AUTO) 1.2 K/uL (0.0-0.7); EOSINOPHILS % (AUTO) 12.3 % (0.0-6.0); HEMATOCRIT 26 % (33-45); HEMOGLOBIN 8.5 g/dL (11.5-14.8); LYMPHOCYTES # (AUTO) 1.3 K/uL (0.8-4.8); LYMPHOCYTES % (AUTO) 13.5 % (20.0-44.0); MEAN CORPUSCULAR HEMOGLOBIN 31 PG (26.0-33.0); MEAN CORPUSCULAR HGB CONC 33 g/dl (31.0-36.0); MEAN CORPUSCULAR VOLUME 94 fL (82-100); MONOCYTES # (AUTO) 1.1 K/uL (0.1-1.30); MONOCYTES % (AUTO) 11.2 % (2.0-12.0); NEUTROPHILS % (AUTO) 62.6 % (43.0-81.0); PLATELET COUNT (AUTO) 208 K/uL (150-450); RED BLOOD CELL COUNT(AUTO) 2.77 MIL/uL (4.0-5.2); RED CELL DISTRIBUTION WIDTH 14.6 % (11.5-15.0); WHITE BLOOD COUNT (AUTO) 9.6 K/uL (4.3-11.0)
[2023-03-19 06:11] LABS: CALCIUM, SERUM 9.2 mg/dL (8.5-10.1); CHLORIDE 98 mmol/L (98-107); CREATININE 2.4 mg/dL (0.6-1.3); GLUCOSE 120 mg/dL (74-106); POTASSIUM 3.7 mmol/L (3.5-5.1); SODIUM SERUM 142 mmol/L (136-145); UREA NITROGEN, BLOOD 44 mg/dL (7-18)
[2023-03-19 06:15] LABS: CARBON DIOXIDE 40 mmol/L (21-32)
[2023-03-19] MEDS ORDERED: BUMETANIDE INJ 8 MG in IV NS 0.9% 48 ML IV ONE (07:30)
[2023-03-19 08:00] VITALS: BP 109/49; TEMP 98.4; O2SAT 99
[2023-03-19] MEDS: FERROUS SULFATE (325 MG) 325 MG/TAB TABLET PO SCH ×2 (08:49→17:00)
[2023-03-19] MEDS: CHOLECALCIFEROL 1,000 UNIT TABLET (VIT D3) PO SCH (08:49)
[2023-03-19] MEDS: PANTOPRAZOLE 40 MG TABLET.DR PO SCH (08:49)
[2023-03-19] MEDS: GABAPENTIN 100 MG CAPSULE PO SCH (08:49)
[2023-03-19] MEDS: DILTIAZEM HCL CD 300 MG PO SCH (08:50)
[2023-03-19 12:00] VITALS: BP 106/55; TEMP 98; O2SAT 99
[2023-03-19 16:00] VITALS: BP 114/51; TEMP 98.5; O2SAT 98
[2023-03-19 20:00] VITALS: BP 108/61; TEMP 98.8; O2SAT 98
[2023-03-19] MEDS: ATORVASTATIN 40 MG TABLET PO SCH (21:00)
[2023-03-20] VITALS: BP 104/54; TEMP 97.9; O2SAT 98
[2023-03-20 04:00] VITALS: BP 120/46; TEMP 97.9; O2SAT 99
[2023-03-20 05:57] LABS: BASOPHILS % (AUTO) 0.1 % (0.0-2.0); EOSINOPHILS # (AUTO) 1.4 K/uL (0.0-0.7); EOSINOPHILS % (AUTO) 13.5 % (0.0-6.0); HEMATOCRIT 28 % (33-45); HEMOGLOBIN 9.3 g/dL (11.5-14.8); LYMPHOCYTES # (AUTO) 1.4 K/uL (0.8-4.8); LYMPHOCYTES % (AUTO) 14.4 % (20.0-44.0); MEAN CORPUSCULAR HEMOGLOBIN 31 PG (26.0-33.0); MEAN CORPUSCULAR HGB CONC 33 g/dl (31.0-36.0); MEAN CORPUSCULAR VOLUME 93 fL (82-100); MONOCYTES % (AUTO) 9.6 % (2.0-12.0); NEUTROPHILS # (AUTO) 6.2 K/uL (1.8-8.9); NEUTROPHILS % (AUTO) 62.4 % (43.0-81.0); PLATELET COUNT (AUTO) 211 K/uL (150-450); RED BLOOD CELL COUNT(AUTO) 3.02 MIL/uL (4.0-5.2); RED CELL DISTRIBUTION WIDTH 14.8 % (11.5-15.0)
[2023-03-20 06:36] LABS: CALCIUM, SERUM 9.5 mg/dL (8.5-10.1); CHLORIDE 97 mmol/L (98-107); CREATININE 2.6 mg/dL (0.6-1.3); GLUCOSE 111 mg/dL (74-106); POTASSIUM 3.7 mmol/L (3.5-5.1); SODIUM SERUM 144 mmol/L (136-145); UREA NITROGEN, BLOOD 48 mg/dL (7-18)
[2023-03-20 07:06] LABS: CARBON DIOXIDE 44 mmol/L (21-32)
[2023-03-20] MEDS: PANTOPRAZOLE 40 MG TABLET.DR PO SCH (07:40)
[2023-03-20 08:00] VITALS: BP 125/59; TEMP 97.3; O2SAT 99
[2023-03-20] MEDS ORDERED: BUMETANIDE INJ 8 MG in IV NS 0.9% 48 ML IV ONE (08:00)
[2023-03-20] MEDS: CHOLECALCIFEROL 1,000 UNIT TABLET (VIT D3) PO SCH (08:28)
[2023-03-20] MEDS: FERROUS SULFATE (325 MG) 325 MG/TAB TABLET PO SCH ×2 (08:28→17:51)
[2023-03-20] MEDS: GABAPENTIN 100 MG CAPSULE PO SCH (08:28)
[2023-03-20] MEDS: DILTIAZEM HCL CD 300 MG PO SCH (08:29)
[2023-03-20 10:00] VITALS: BP 122/52; TEMP 97.3; O2SAT 99
[2023-03-20 13:02] VITALS: BP 122/52; TEMP 97.3; O2SAT 99
[2023-03-20 19:59] VITALS: BP 117/49; TEMP 98; O2SAT 97
[2023-03-20] MEDS: ATORVASTATIN 40 MG TABLET PO SCH (21:52)
[2023-03-21] VITALS: BP 110/46; TEMP 99.1; O2SAT 97
[2023-03-21 07:07] LABS: BASOPHILS % (AUTO) 0.2 % (0.0-2.0); EOSINOPHILS # (AUTO) 1.5 K/uL (0.0-0.7); EOSINOPHILS % (AUTO) 15.3 % (0.0-6.0); HEMATOCRIT 27 % (33-45); LYMPHOCYTES # (AUTO) 1.4 K/uL (0.8-4.8); LYMPHOCYTES % (AUTO) 14.8 % (20.0-44.0); MEAN CORPUSCULAR HEMOGLOBIN 31 PG (26.0-33.0); MEAN CORPUSCULAR HGB CONC 33 g/dl (31.0-36.0); MEAN CORPUSCULAR VOLUME 94 fL (82-100); MONOCYTES # (AUTO) 1.1 K/uL (0.1-1.30); MONOCYTES % (AUTO) 11.3 % (2.0-12.0); NEUTROPHILS # (AUTO) 5.6 K/uL (1.8-8.9); NEUTROPHILS % (AUTO) 58.4 % (43.0-81.0); PLATELET COUNT (AUTO) 201 K/uL (150-450); RED CELL DISTRIBUTION WIDTH 14.8 % (11.5-15.0); WHITE BLOOD COUNT (AUTO) 9.5 K/uL (4.3-11.0)
[2023-03-21 08:09] LABS: CALCIUM, SERUM 9.1 mg/dL (8.5-10.1); CHLORIDE 97 mmol/L (98-107); CREATININE 2.8 mg/dL (0.6-1.3); GLUCOSE 105 mg/dL (74-106); POTASSIUM 3.4 mmol/L (3.5-5.1); SODIUM SERUM 145 mmol/L (136-145); UREA NITROGEN, BLOOD 52 mg/dL (7-18)
[2023-03-21 08:15] LABS: CARBON DIOXIDE 41 mmol/L (21-32)
[2023-03-21] MEDS ORDERED: acetaZOLAMIDE SODIUM 500 MG/VIAL VIAL IV ONE (08:30)
[2023-03-21] MEDS: DILTIAZEM HCL CD 300 MG PO SCH (08:51)
[2023-03-21] MEDS: GABAPENTIN 100 MG CAPSULE PO SCH (08:52)
[2023-03-21] MEDS: CHOLECALCIFEROL 1,000 UNIT TABLET (VIT D3) PO SCH (08:52)
[2023-03-21] MEDS: FERROUS SULFATE (325 MG) 325 MG/TAB TABLET PO SCH ×2 (08:52→16:56)
[2023-03-21] MEDS: PANTOPRAZOLE 40 MG TABLET.DR PO SCH (08:52)
[2023-03-21 12:00] VITALS: BP 110/59; TEMP 98.1; O2SAT 99
[2023-03-21 16:00] VITALS: BP 111/51; TEMP 98.1; O2SAT 96
[2023-03-21] MEDS: HYDROCORTISONE OINT 1% 28.35 GM TUBE TP SCH (16:56)
[2023-03-21 20:35] VITALS: BP 106/48; TEMP 98.4; O2SAT 96
[2023-03-21] MEDS: ATORVASTATIN 40 MG TABLET PO SCH (22:04)
[2023-03-22 00:04] VITALS: BP 115/52; TEMP 98.4; O2SAT 99
[2023-03-22 04:00] VITALS: BP 112/49; TEMP 98.4; O2SAT 100
[2023-03-22 06:53] LABS: BASOPHILS % (AUTO) 0.2 % (0.0-2.0); EOSINOPHILS # (AUTO) 1.6 K/uL (0.0-0.7); EOSINOPHILS % (AUTO) 17.1 % (0.0-6.0); HEMATOCRIT 29 % (33-45); HEMOGLOBIN 9.1 g/dL (11.5-14.8); LYMPHOCYTES # (AUTO) 1.6 K/uL (0.8-4.8); LYMPHOCYTES % (AUTO) 17.4 % (20.0-44.0); MEAN CORPUSCULAR HEMOGLOBIN 30 PG (26.0-33.0); MEAN CORPUSCULAR HGB CONC 32 g/dl (31.0-36.0); MEAN CORPUSCULAR VOLUME 95 fL (82-100); MONOCYTES % (AUTO) 10.9 % (2.0-12.0); NEUTROPHILS % (AUTO) 54.4 % (43.0-81.0); PLATELET COUNT (AUTO) 210 K/uL (150-450); RED BLOOD CELL COUNT(AUTO) 3.02 MIL/uL (4.0-5.2); RED CELL DISTRIBUTION WIDTH 14.4 % (11.5-15.0); WHITE BLOOD COUNT (AUTO) 9.1 K/uL (4.3-11.0)
[2023-03-22 07:26] LABS: CALCIUM, SERUM 9.5 mg/dL (8.5-10.1); CARBON DIOXIDE 38 mmol/L (21-32); CHLORIDE 100 mmol/L (98-107); CREATININE 2.6 mg/dL (0.6-1.3); GLUCOSE 99 mg/dL (74-106); POTASSIUM 3.3 mmol/L (3.5-5.1); SODIUM SERUM 143 mmol/L (136-145); UREA NITROGEN, BLOOD 53 mg/dL (7-18)
[2023-03-22 08:00] VITALS: BP 130/48; TEMP 98.4; O2SAT 99
[2023-03-22] MEDS: POTASSIUM CHLORIDE 20 MEQ TAB.PRT.SR PO SCH ×2 (08:33→10:08)
[2023-03-22] MEDS: GABAPENTIN 100 MG CAPSULE PO SCH (08:33)
[2023-03-22] MEDS: CHOLECALCIFEROL 1,000 UNIT TABLET (VIT D3) PO SCH (08:33)
[2023-03-22] MEDS: FERROUS SULFATE (325 MG) 325 MG/TAB TABLET PO SCH ×2 (08:33→16:36)
[2023-03-22] MEDS: PANTOPRAZOLE 40 MG TABLET.DR PO SCH (08:33)
[2023-03-22] MEDS: HYDROCORTISONE OINT 1% 28.35 GM TUBE TP SCH ×2 (08:34→16:10)
[2023-03-22] MEDS: DILTIAZEM HCL CD 300 MG PO SCH (08:37)
[2023-03-22 12:00] VITALS: BP 102/51; TEMP 98.2; O2SAT 99
[2023-03-22 16:00] VITALS: BP 109/53; TEMP 97.9; O2SAT 98
[2023-03-22 20:00] VITALS: BP 111/46; TEMP 98.2; O2SAT 99
[2023-03-22] MEDS: ATORVASTATIN 40 MG TABLET PO SCH (21:24)
[2023-03-23] VITALS: BP 104/43; TEMP 98.2; O2SAT 96
[2023-03-23 04:00] VITALS: BP 119/48; TEMP 98; O2SAT 99
[2023-03-23 07:01] LABS: BASOPHILS % (AUTO) 0.1 % (0.0-2.0); EOSINOPHILS # (AUTO) 1.5 K/uL (0.0-0.7); EOSINOPHILS % (AUTO) 14.3 % (0.0-6.0); HEMATOCRIT 26 % (33-45); HEMOGLOBIN 8.2 g/dL (11.5-14.8); LYMPHOCYTES # (AUTO) 1.6 K/uL (0.8-4.8); LYMPHOCYTES % (AUTO) 14.9 % (20.0-44.0); MEAN CORPUSCULAR HEMOGLOBIN 30 PG (26.0-33.0); MEAN CORPUSCULAR HGB CONC 32 g/dl (31.0-36.0); MEAN CORPUSCULAR VOLUME 95 fL (82-100); MONOCYTES # (AUTO) 1.2 K/uL (0.1-1.30); MONOCYTES % (AUTO) 11.1 % (2.0-12.0); NEUTROPHILS # (AUTO) 6.4 K/uL (1.8-8.9); NEUTROPHILS % (AUTO) 59.6 % (43.0-81.0); PLATELET COUNT (AUTO) 197 K/uL (150-450); RED BLOOD CELL COUNT(AUTO) 2.71 MIL/uL (4.0-5.2); RED CELL DISTRIBUTION WIDTH 14.6 % (11.5-15.0); WHITE BLOOD COUNT (AUTO) 10.7 K/uL (4.3-11.0)
[2023-03-23 07:29] LABS: CARBON DIOXIDE 35 mmol/L (21-32); CHLORIDE 102 mmol/L (98-107); CREATININE 2.6 mg/dL (0.6-1.3); GLUCOSE 126 mg/dL (74-106); POTASSIUM 3.6 mmol/L (3.5-5.1); SODIUM SERUM 142 mmol/L (136-145); UREA NITROGEN, BLOOD 54 mg/dL (7-18)
[2023-03-23] MEDS: PANTOPRAZOLE 40 MG TABLET.DR PO SCH (07:36)
[2023-03-23 08:00] VITALS: BP 106/48; TEMP 98.2; O2SAT 99
[2023-03-23 08:17] LABS: BAND % (MANUAL) 2 % (0.0-5.0); EOSINOPHILS % (MANUAL) 8 % (0-4); LYMPHOCYTES % (MANUAL) 14 % (16-48); MONOCYTES % (MANUAL) 10 % (0-11.0); NEUTROPHILS % (MANUAL) 66 (42-76)
[2023-03-23 08:18] LABS: PLATELET ESTIMATE ADEQUATE
[2023-03-23] MEDS: CHOLECALCIFEROL 1,000 UNIT TABLET (VIT D3) PO SCH (08:22)
[2023-03-23] MEDS: GABAPENTIN 100 MG CAPSULE PO SCH (08:22)
[2023-03-23] MEDS: FERROUS SULFATE (325 MG) 325 MG/TAB TABLET PO SCH ×2 (08:22→16:12)
[2023-03-23] MEDS: DILTIAZEM HCL CD 300 MG PO SCH (08:23)
[2023-03-23] MEDS: HYDROCORTISONE OINT 1% 28.35 GM TUBE TP SCH ×2 (08:33→16:12)
[2023-03-23 12:00] VITALS: BP 135/72; TEMP 98.4; O2SAT 99
[2023-03-23 14:07] LABS: HEPATITIS B CORE AB, IgM Negative (Negative); HEPATITIS B CORE AB, TOTAL Negative (Negative); HEPATITIS B SURFACE AB Reactive (.)
[2023-03-23 16:00] VITALS: BP 115/68; TEMP 98.6; O2SAT 99
[2023-03-23 20:00] VITALS: BP 110/65; TEMP 97.3; O2SAT 98
[2023-03-23] MEDS: ATORVASTATIN 40 MG TABLET PO SCH (21:31)
[2023-03-24] VITALS: BP 130/60; TEMP 97.5; O2SAT 98
[2023-03-24 04:00] VITALS: BP 110/65; TEMP 98.6; O2SAT 97
[2023-03-24 08:00] VITALS: BP 131/67; TEMP 97.7; O2SAT 100
[2023-03-24] MEDS: PANTOPRAZOLE 40 MG TABLET.DR PO SCH (08:14)
[2023-03-24] MEDS: CHOLECALCIFEROL 1,000 UNIT TABLET (VIT D3) PO SCH (08:14)
[2023-03-24] MEDS: DILTIAZEM HCL CD 300 MG PO SCH (08:14)
[2023-03-24] MEDS: GABAPENTIN 100 MG CAPSULE PO SCH (08:14)
[2023-03-24] MEDS: FERROUS SULFATE (325 MG) 325 MG/TAB TABLET PO SCH ×2 (08:14→16:43)
[2023-03-24] MEDS: HYDROCORTISONE OINT 1% 28.35 GM TUBE TP SCH ×2 (09:00→16:43)
[2023-03-24 09:26] LABS: BASOPHILS % (AUTO) 0.2 % (0.0-2.0); EOSINOPHILS # (AUTO) 1.5 K/uL (0.0-0.7); EOSINOPHILS % (AUTO) 15.6 % (0.0-6.0); HEMATOCRIT 29 % (33-45); HEMOGLOBIN 8.5 g/dL (11.5-14.8); LYMPHOCYTES # (AUTO) 1.5 K/uL (0.8-4.8); LYMPHOCYTES % (AUTO) 15.5 % (20.0-44.0); MEAN CORPUSCULAR HEMOGLOBIN 30 PG (26.0-33.0); MEAN CORPUSCULAR HGB CONC 30 g/dl (31.0-36.0); MEAN CORPUSCULAR VOLUME 102 fL (82-100); MONOCYTES # (AUTO) 0.9 K/uL (0.1-1.30); MONOCYTES % (AUTO) 9.5 % (2.0-12.0); NEUTROPHILS # (AUTO) 5.9 K/uL (1.8-8.9); NEUTROPHILS % (AUTO) 59.2 % (43.0-81.0); PLATELET COUNT (AUTO) 183 K/uL (150-450); RED BLOOD CELL COUNT(AUTO) 2.81 MIL/uL (4.0-5.2); RED CELL DISTRIBUTION WIDTH 15.2 % (11.5-15.0); WHITE BLOOD COUNT (AUTO) 9.9 K/uL (4.3-11.0)
[2023-03-24 09:40] LABS: CALCIUM, SERUM 9.3 mg/dL (8.5-10.1); CARBON DIOXIDE 30 mmol/L (21-32); CHLORIDE 105 mmol/L (98-107); CREATININE 2.2 mg/dL (0.6-1.3); GLUCOSE 117 mg/dL (74-106); POTASSIUM 3.7 mmol/L (3.5-5.1); SODIUM SERUM 144 mmol/L (136-145); UREA NITROGEN, BLOOD 48 mg/dL (7-18)
[2023-03-24 16:00] VITALS: BP 101/56; TEMP 98.6; O2SAT 100
[2023-03-24] MEDS: ATORVASTATIN 40 MG TABLET PO SCH (22:23)
[2023-03-24] MEDS ORDERED: diphenhydrAMINE HCL 50 MG/ML VIAL IV PRN (23:30)
[2023-03-25] VITALS: BP 140/76; TEMP 98; O2SAT 100
[2023-03-25 05:59] LABS: CALCIUM, SERUM 9.4 mg/dL (8.5-10.1); CARBON DIOXIDE 28 mmol/L (21-32); CHLORIDE 109 mmol/L (98-107); CREATININE 2.1 mg/dL (0.6-1.3); GLUCOSE 105 mg/dL (74-106); POTASSIUM 4.1 mmol/L (3.5-5.1); SODIUM SERUM 146 mmol/L (136-145); UREA NITROGEN, BLOOD 47 mg/dL (7-18)
[2023-03-25 06:15] LABS: BASOPHILS % (AUTO) 0.3 % (0.0-2.0); EOSINOPHILS # (AUTO) 1.6 K/uL (0.0-0.7); EOSINOPHILS % (AUTO) 16.9 % (0.0-6.0); HEMATOCRIT 26 % (33-45); HEMOGLOBIN 8.3 g/dL (11.5-14.8); LYMPHOCYTES # (AUTO) 1.7 K/uL (0.8-4.8); MEAN CORPUSCULAR HEMOGLOBIN 31 PG (26.0-33.0); MEAN CORPUSCULAR HGB CONC 32 g/dl (31.0-36.0); MEAN CORPUSCULAR VOLUME 96 fL (82-100); MONOCYTES % (AUTO) 10.7 % (2.0-12.0); NEUTROPHILS # (AUTO) 5.2 K/uL (1.8-8.9); NEUTROPHILS % (AUTO) 54.1 % (43.0-81.0); PLATELET COUNT (AUTO) 198 K/uL (150-450); RED BLOOD CELL COUNT(AUTO) 2.67 MIL/uL (4.0-5.2); RED CELL DISTRIBUTION WIDTH 14.9 % (11.5-15.0); WHITE BLOOD COUNT (AUTO) 9.7 K/uL (4.3-11.0)
[2023-03-25 08:00] VITALS: BP 124/51; TEMP 98.6; O2SAT 98
[2023-03-25 09:16] VITALS: BP 124/51
[2023-03-25] MEDS: FERROUS SULFATE (325 MG) 325 MG/TAB TABLET PO SCH (09:16)
[2023-03-25] MEDS: DILTIAZEM HCL CD 300 MG PO SCH (09:16)
[2023-03-25] MEDS: GABAPENTIN 100 MG CAPSULE PO SCH (09:17)
[2023-03-25] MEDS: CHOLECALCIFEROL 1,000 UNIT TABLET (VIT D3) PO SCH (09:17)
[2023-03-25] MEDS: PANTOPRAZOLE 40 MG TABLET.DR PO SCH (09:19)
[2023-03-25] MEDS: HYDROCORTISONE OINT 1% 28.35 GM TUBE TP SCH (09:20)
== END 2023-03-25 14:05 | disposition home health service (06) | DRG 280 ==
LOC: ER 19:40 → TELE1 22:32 → MEDSG1 03-24 09:41
PROVIDERS: ADMIT Internal Medicine; ATTEND Nurse Practitioner Acute Care
PROC: 30233N1 Transfusion of Nonautologous Red Blood Cells into Peripheral Vein, Percutaneous Approach (ICD-10-PCS; principal; 2023-03-17)
PROC: 0DB58ZX Excision of Esophagus, Via Natural or Artificial Opening Endoscopic, Diagnostic (ICD-10-PCS; 2023-03-19)
PROC: 0DB68ZX Excision of Stomach, Via Natural or Artificial Opening Endoscopic, Diagnostic (ICD-10-PCS; 2023-03-19)
PROC: 5A1D70Z Performance of Urinary Filtration, Intermittent, Less than 6 Hours Per Day (ICD-10-PCS; 2023-03-23)
PROC: 05HB33Z Insertion of Infusion Device into Right Basilic Vein, Percutaneous Approach (ICD-10-PCS; 2023-03-25)
DX: I13.0 Hypertensive heart and chronic kidney disease with heart failure and stage 1 through stage 4 chronic kidney disease, or unspecified chronic kidney disease (principal); I50.33 Acute on chronic diastolic (congestive) heart failure; I21.A1 Myocardial infarction type 2; E66.2 Morbid (severe) obesity with alveolar hypoventilation; N18.4 Chronic kidney disease, stage 4 (severe); D68.59 Other primary thrombophilia; E87.0 Hyperosmolality and hypernatremia; Z68.41 Body mass index [BMI] 40.0-44.9, adult; J96.10 Chronic respiratory failure, unspecified whether with hypoxia or hypercapnia; E87.3 Alkalosis; Z20.822 Contact with and (suspected) exposure to COVID-19; E61.1 Iron deficiency; K29.70 Gastritis, unspecified, without bleeding; K22.89 Other specified disease of esophagus; E78.5 Hyperlipidemia, unspecified; J44.9 Chronic obstructive pulmonary disease, unspecified; Z79.51 Long term (current) use of inhaled steroids; Z79.01 Long term (current) use of anticoagulants; Z79.899 Other long term (current) drug therapy; D63.8 Anemia in other chronic diseases classified elsewhere; Z74.09 Other reduced mobility; I25.10 Atherosclerotic heart disease of native coronary artery without angina pectoris; I48.0 Paroxysmal atrial fibrillation; N25.0 Renal osteodystrophy; I25.2 Old myocardial infarction; N28.1 Cyst of kidney, acquired; Z99.81 Dependence on supplemental oxygen; T50.1X5A Adverse effect of loop [high-ceiling] diuretics, initial encounter; Y92.9 Unspecified place or not applicable
CPT/HCPCS: 36415; 71045-TC; 71250-TC; 80048-TC; 80061-TC; 80076-TC; 82728-TC; 82962-TC; 83540-TC; 83735-TC; 83880; 84100-TC; 84439-TC; 84443-TC; 84484-TC; 85025-TC; 86704; 86705; 86706; 86803; 86850-TC; 87340; 90935-TC; 93970-TC; 97110-TC; 97530-TC; A6253; A6403; G0378; J1120; J1200; J1940; J2704; J3490; J7030; J7050; J7060; P9016